=== PATIENT | male | born 1940 | race Caucasian/White ===

== ENCOUNTER 2018-11-12 14:21 | Inpatient (IN) | payer BC, OTHER ==
--- NOTE | 2018-11-12 16:06 | PDOC ---
Attending Attestation - HPI HPI: 11/12/18 16:46 The patient is a 78 year old male, with a significant PMH of hodgkin's lymphoma (2014 completed treatment), afib (on warfarin), hypothyroidism, hypotension, RA , who presents to the emergency department with worsening chronic knee pain for 1 month. The patient states he has not been able to ambulate for 1 week secondary to the knee pain and weakness. The patient also has an additional complaint of constipation. The patient denies chest pain, shortness of breath, headache and dizziness. Denies fever, chills, nausea, vomit, and diarrhea. Denies dysuria, frequency, urgency and hematuria. Allergies: NKA Documentation prepared by Frederick Castro, acting as director medical science for Kiara Haines DO. - Physicial Exam PE: 11/12/18 16:36 GENERAL: (+) Malodorous. Awake and alert, in no acute distress HEAD: No signs of trauma EYES: PERRLA, EOMI, sclera anicteric, conjunctiva clear ENT: Auricles normal inspection, hearing grossly normal, nares patent, oropharynx clear without exudates. Moist mucosa NECK: Normal ROM, supple, no lymphadenopathy, JVD, or masses LUNGS: Breath sounds equal, clear to auscultation bilaterally. No wheezes, and no crackles HEART: Regular rate and rhythm, normal S1 and S2, no murmurs, rubs or gallops ABDOMEN: (+) Obese. Soft, nontender, normoactive bowel sounds. No guarding, no rebound. No masses EXTREMITIES: (+) Limited range of motion in the hips and knees bilaterally secondary to pain and weakness. (+) Stiffness in the lower extremities. Sensation intact. Pedal pulses intact. Better passive range of motion than active. Upper extremities have full ROM. No clubbing or cyanosis. No cords, erythema, or tenderness NEUROLOGICAL: Cranial nerves II through XII grossly intact. Normal speech. SKIN: Warm, Dry, normal turgor, no rashes or lesions noted. <Frederick Castro - Last Filed: 11/12/18 16:48> - Resident Resident Name: Price Patricia - ED Attending Attestation I have performed the following: I have examined & evaluated the patient, The case was reviewed & discussed with the resident, I agree w/resident's findings & plan, Exceptions are as noted - Medical Decision Making 11/12/18 16:06 I, Dr. Kiara Haines, DO, attest that this document has been prepared under my direction and personally reviewed by me in its entirety. I further attest, that it accurately reflects all work, treatment, procedures and medical decision -making performed by me. 11/12/18 16:31 a/p: 78yo male with chronic knee pain and arthritis with worsening pain x 1 month -has not seen his docs x over three months, has not had his INR checked in over 3 months -has not been able to ambulte x >1 week, has been bed bound -has been constipated -normal po intake, denies dysuria, but states urine is concentrated -pt has limited ROM of LE with both active and passive, denies trauma, but generally weak to LE -will send labs, uric acid, knee swelling, no warmth, pain with active ROM -weak from pelvis to LE -sensation intact -all treatment has been at [facility] -will obtain xrays, ekg -ua -ck -will monitor and reassess 11/12/18 17:53 uric acid elevated no hx of kidney disease bird on labs will give prednisone for knee pain- suspect poss gouty arthritis -will need admission for BIRD pt seen by manager case who will assist with placement 11/12/18 18:56 resident discussed the case with demond who accepts pt to service <Kiara Haines - Last Filed: 11/12/18 18:57> Heart Score/ECG Review - ECG Intrepretation Comment:: 11/12/18 17:24 sinus at 78, nl axis, nl interval, no acute st/t wave findings <Kiara Haines - Last Filed: 11/12/18 18:57>
--- NOTE | 2018-11-12 16:07 | PDOC ---
History of Present Illness - General Chief Complaint: Pain Stated Complaint: LEG PAIN Time Seen by Provider: 11/12/18 15:26 History Source: Patient, Family Exam Limitations: No Limitations - History of Present Illness Initial Comments: 11/12/18 17:02 Pt. is a 78 y.o. M w/ PMHx. including but not exclusive to Hodgkins Lymphoma ( 2013- completed 2 session of chemotherapy), A.Fib (on warfarin), hypothyroidism and rheumatoid arthritis presents with b/l knee swelling for the past month. Pt. states that over the last week he has been having worsening knee swelling such that he cannot even get out of bed. The previous week he had been able to be transferred to the chair from the bed. Pt. normally is able to ambulate with a walker and/or cane. Pt. states that over the last 3 months he has had 4 arthritic flare ups that last 7-10 days in duration and treated by Ice, elevation and rest ONLY. Pt. states that he has associated generalized weakness , swelling and bilateral leg pain. Of note Pt. is constipated and state that he has not had a BM in over a week, though he usually goes every day. Pt. also states that his urine has been very dark/borderline reddish at home. We will order CBC, CMP, Mag, TSH, Uric Acid, PT/INR, CXR, B/l Knee XR, UA, CK, IV Tylenol. Timing/Duration: getting worse Severity: moderate Modifying Factors: worse with: cold therapy, immobilization, rest Associated Symptoms: reports: weakness. denies: chest pain, cough, fever/chills Aspirin Received prior to arrival: Yes: no aspirin today Past History - Travel Traveled outside of the country in the last 30 days: No Close contact w/someone who was outside of country & ill: No - Past Medical History Allergies/Adverse Reactions: Allergies Allergy/AdvReac Type Severity Reaction Status Date / Time No Known Allergies Allergy Verified 11/12/18 14:35 Cancer: Yes (HODGKINS LYMPHOMIA) Cardiac Disorders: Yes (AFIB) COPD: No Thyroid Disease: Yes (Hypothyroidism ) Other medical history: UMBILICAL & ABD HERNIA ARTHRITIS - Surgical History Orthopedic Surgery: Yes (Right knee tendon repair ) - Suicide/Smoking/Psychosocial Hx Smoking History: Former smoker Have you smoked in the past 12 months: No Information on smoking cessation initiated: No Hx Alcohol Use: No Drug/Substance Use Hx: No Review of Systems - Review of Systems Able to Perform ROS?: Yes Is the patient limited Czech proficient: No Constitutional: Yes: Weakness, Weight Stable. No: Chills, Fever, Unintentional Wgt. Loss, Unexplained wgt Loss HEENTM: No: Eye Pain, Recent change in vision, Difficulty Swallowing Respiratory: No: Cough, Shortness of Breath, Wheezing Cardiac (ROS): Yes: Edema. No: Chest Pain, Irregular Heart Rate, Lightheadedness, Palpitations, Chest Tightness ABD/GI: Yes: Constipated. No: Diarrhea, Difficulty Swallowing, Nausea, Vomiting : Yes: Testicular Swelling, Other (dark colored urine). No: Burning, Dysuria , Discharge, Frequency, Flank Pain Musculoskeletal: Yes: Joint Pain, Joint Swelling, Muscle Weakness, Joint Stiffness. No: Muscle Pain, Neck Pain Integumentary: Yes: Erythema Neurological: Yes: Weakness, Unsteady Gait. No: Numbness, Paresthesia Endocrine: No: Unexplained Weight Gain, Unexplained Weight Loss *Physical Exam - Vital Signs Last Vital Signs Temp Pulse Resp BP Pulse Ox 97.1 F L 74 18 114/79 95 11/12/18 14:35 11/12/18 14:35 11/12/18 14:35 11/12/18 14:35 11/12/18 14:35 - Physical Exam General Appearance: Yes: Nourished, Appropriately Dressed, Mild Distress, Obese HEENT: positive: Normal ENT Inspection, Normal Voice, Symmetrical. negative: Pharynx Normal (Dry MM) Neck: positive: Trachea midline, Supple. negative: Tender Respiratory/Chest: positive: Decreased Breath Sounds (bibiasilar ), Crackles ( bibasilar ). negative: Respiratory Distress, Accessory Muscle Use, Wheezing Cardiovascular: positive: Regular Rhythm, Regular Rate, S1, S2, Edema. negative : JVD, Murmur Vascular Pulses: Dorsalis-Pedis (R): 2+, Doralis-Pedis (L): 2+ Gastrointestinal/Abdominal: positive: Normal Bowel Sounds, Soft, Protuberent, Hernia. negative: Guarding, Rebound, Tenderness Male Genitalia: positive: inguinal hernia, hernia. negative: normal genitalia ( scrotal swelling), epididymus tender Rectal Exam: positive: deferred Musculoskeletal: positive: Decreased Range of Motion (decreased b/l R>L in knees , elbow and hip with associated joint stiffness). negative: CVA Tenderness Extremity: positive: Pedal Edema, Swelling. negative: Normal Range of Motion Integumentary: positive: Dry, Warm, Erythema (over knees bilaterally) Neurologic: positive: Fully Oriented, Normal Mood/Affect, Normal Response, Respond to painful stimul Moderate Sedation - Procedure Monitoring Vital Signs: Procedure Monitoring Vital Signs Temperature 97.1 F L 11/12/18 14:35 Pulse Rate 74 11/12/18 14:35 Respiratory Rate 18 11/12/18 14:35 Blood Pressure 114/79 11/12/18 14:35 O2 Sat by Pulse Oximetry (%) 95 11/12/18 14:35 ED Treatment Course - LABORATORY CBC & Chemistry Diagram: 11/12/18 16:57 11/12/18 16:57 *DC/Admit/Observation/Transfer Diagnosis at time of Disposition: BIRD (acute kidney injury), Inability to ambulate due to knee, Arthritis - Discharge Dispostion Decision to Admit order: Yes - Referrals Referrals: Alexi Quijano [Primary Care Provider] - - Patient Instructions - Post Discharge Activity
[2018-11-12] MEDS ORDERED: ACETAMINOPHEN 1000 MG/100 ML VIAL (NON FORMULARY) IVPB ONE (16:21)
[2018-11-12] MEDS ORDERED: SODIUM CHLORIDE 0.9% 1000 ML INFUS.BAG IV ONE (16:30)
[2018-11-12] MEDS ORDERED: ACETAMINOPHEN INJECTION 100 ML IVPB ONE (16:46)
[2018-11-12 17:04] LABS: HEMATOCRIT 37.1 % (35.4-49); LYMPH % 15.8 % (8-40); MCH 32.2 pg (25.7-33.7); MONO % 8.6 % (3.8-10.2); NEUT % 69.6 % (42.8-82.8); PLATELET COUNT 565 K/MM3 (134-434); RBC 4.03 M/mm3 (4.00-5.60); RDW 14.3 % (11.9-15.9); WHITE BLOOD COUNT 9.4 K/mm3 (4.0-10.0)
[2018-11-12 17:23] LABS: INR 2.71 (0.83-1.09); PROTHROMBIN TIME (PATIENT) 32.3 SEC (9.7-13.0)
[2018-11-12 17:42] LABS: ALBUMIN 2.6 g/dl (3.4-5.0); ALK PHOS 117 U/L (45-117); ANION GAP 9 MMOL/L (8-16); BILIRUBIN,TOTAL 0.5 mg/dL (0.2-1); BLOOD UREA NITROGEN 53 mg/dL (7-18); CALCIUM 8.2 mg/dL (8.5-10.1); CHLORIDE 100 mmol/L (98-107); CO2 28 mmol/L (21-32); CREATININE 2.4 mg/dL (0.55-1.3); GLUCOSE,RANDOM 97 mg/dL (74-106); MAGNESIUM 2.5 mg/dL (1.8-2.4); POTASSIUM 3.9 mmol/L (3.5-5.1); SGOT/AST 33 U/L (15-37); SGPT/ALT 41 U/L (13-61); SODIUM 137 mmol/L (136-145); URIC ACID 11.2 mg/dL (2.6-7.2)
[2018-11-12] MEDS ORDERED: predniSONE 20 MG TABLET (UD) PO ONE (18:56)
--- NOTE | 2018-11-12 20:27 | HP ---
CHIEF COMPLAINT: Decreased Ambulation PCP: Dr. Brayden Torres HCP: Son Tasneem [phone] HISTORY OF PRESENT ILLNESS: 78 y/o M with PMHx of Hodgkins lymphoma, Atrial fibrillation (on Warfarin), Rheumatoid Arthritis presents with difficulty ambulating for the past month. Patients son and HCP Tasneem was present at bedside and provided part of the history. Patient has had b/l Knee swelling for the past 3 months accompanied by 4 episodes of stiffness that have lasted 7-10 days. Patient has called his PCP who advised RICE therapy which has helped. However, for the past one month, this is no longer providing relief. Patient has had worsening swelling of his b/ l Knee joints and decreased range of montion of his b/l LE. Previously the patient has been able to ambulate with cane/walker however now he is having trouble getting off of his bed and supporting himself. Additionally he is experiencing 9/10, sharp pain in his R Knee that travels to his R heel. Tylenol has helped in the past but is no longer providing relief. Patient endorses a hx of Dizzy spells and constipation. Denies any recent trauma, falls or rash to the area. Of note, Patient has had 2 sessions of hemodialysis while he was undergoing chemotherapy 4 years ago. Per ED Physician, patient has a reducible Umbilical and R Inguinal hernia. Denies any accompanying fevers, chills, chest pain, SOB, Nausea, vomiting, diarrhea, dysuria, hematuria, decreased PO Intake. ER course was notable for: (1) Prednisone, Ofirmev, 1/2L NS Recent Travel: Denies PAST MEDICAL HISTORY: Hodgkins lymphoma s/p 2 sessions of chemo (2013) Atrial fibrillation (on Warfarin) Umbilical and Inguinal hernia Rheumatoid Arthritis Hypothyroidism BPH PAST SURGICAL HISTORY: Tonsillectomy Right Patellar tendon repair Social History: Smoking: Quit in 1963; Few cigarettes daily x 10 years prior Alcohol: Denies Drugs: Denies Ambulation: Cane and walker for past 3 months Residence: At home with and Son Tasneem Family History: Cardiac disease Allergies No Known Allergies Allergy (Verified 11/12/18 14:35) HOME MEDICATIONS: REVIEW OF SYSTEMS As per HPI PHYSICAL EXAMINATION Vital Signs - 24 hr 11/12/18 11/12/18 14:35 19:31 Temperature 97.1 F L Pulse Rate 74 Pulse Rate [ 78 Radial] Respiratory 18 18 Rate Blood Pressure 114/79 Blood Pressure 101/64 [Right Arm] O2 Sat by Pulse 95 96 Oximetry (%) GENERAL: A&Ox3, NAD, lying with head of bed elevated HEAD: NCAT EYES: PERRL, EOMI EARS, NOSE, THROAT: Oropharynx clear without exudates. Moist mucous membranes. NECK: Supple without lymphadenopathy or JVD LUNGS: CTA b/l, No wheezes, no crackles HEART: Regular rate and rhythm, normal S1 and S2 without murmur ABDOMEN: Soft, nontender, distended, + bowel sounds, no guarding MUSCULOSKELETAL: Decreased b/l Hip ROM, Decreased b/l Knee flexion. B/L Knee swelling. No CVA tenderness. EXTREMITIES: 2+ pulses, No calf tenderness. 1+ Pedal edema. NEUROLOGICAL: Cranial nerves II-XII intact. Normal speech. Gross sensation intact throughout. 5/5 muscle strength to handgrip, elbow flexion and extension. 0/5 muscle strength to Hip Flexion. 4/5 muscle strength to Plantarflexion and dorsiflexion. SKIN: Warm, dry Laboratory Results - last 24 hr 11/12/18 11/12/18 11/12/18 16:57 16:57 16:57 WBC 9.4 RBC 4.03 Hgb 13.0 Hct 37.1 MCV 92.0 MCH 32.2 MCHC 35.0 RDW 14.3 Plt Count 565 H MPV 7.0 L Absolute Neuts (auto) 6.6 Neutrophils % 69.6 Lymphocytes % 15.8 Monocytes % 8.6 Eosinophils % 5.0 H Basophils % 1.0 Nucleated RBC % 0 PT with INR 32.30 H INR 2.71 H Sodium 137 Potassium 3.9 Chloride 100 Carbon Dioxide 28 Anion Gap 9 BUN 53 H Creatinine 2.4 H Creat Clearance w eGFR 26.25 Random Glucose 97 Uric Acid 11.2 H Calcium 8.2 L Magnesium 2.5 H Total Bilirubin 0.5 AST 33 ALT 41 Alkaline Phosphatase 117 Creatine Kinase 89 Total Protein 7.0 Albumin 2.6 L TSH 2.99 ASSESSMENT/PLAN: 78 y/o M with PMHx of Hodgkins lymphoma, Atrial fibrillation (on Warfarin), Rheumatoid Arthritis presents with difficulty ambulating for the past month and found to have BIRD on admission. #B/L Knee pain causing inability to ambulate -Hx of RA -ESR, CRP, SENAIT, RF pending -Physical therapy evaluation -Tylenol for pain control -Orthopedic (Dr. Rojas) Consulted #?BIRD -Unknown baseline Cr, HD during chemotherapy 4 years ago -Received 1/2L NS in ED -Continue NS @ 100 mls/hr -UA, Urine lytes, Urine Sodium, Urine Cr, Renal/Kidney US pending -I&Os -Nephrology consult if BIRD doesnt improve -Avoid NSAIDs; Home dose lasix held #Hx of Atrial fibrillation -Controlled -Continue home dose Warfarin, Carvedilol #Constipation -Senna, Colace #FEN -NS @ 100 mls/hr -Lytes WNL -Sodium controlled diet #PPx -DVT: Heparin Dispo: Admit to med-surg, 3 midnights required for SNF placement for insurance reasons, Home meds restarted except Lasix Visit type - Emergency Visit Emergency Visit: Yes ED Registration Date: 11/12/18 Care time: The patient presented to the Emergency Department on the above date and was hospitalized for further evaluation of their emergent condition. - New Patient This patient is new to me today: Yes Date on this admission: 11/15/18 - Critical Care Critical Care patient: No
[2018-11-12 20:42] LABS: URINE APPEARANCE CLEAR; URINE BILIRUBIN NEGATIVE (<2.0 mg/dL); URINE COLOR LTYELLOW; URINE GLUCOSE (UA) NEGATIVE (NEGATIVE); URINE KETONE NEGATIVE (NEGATIVE); URINE LEUK ESTERASE NEGATIVE (NEGATIVE); URINE NITRITE NEGATIVE (NEGATIVE); URINE PROTEIN NEGATIVE (NEGATIVE); URINE UROBILINOGEN NEGATIVE mg/dL (0.2-1.0)
[2018-11-12] MEDS ORDERED: SODIUM CHLORIDE 1,000 ML IV SCH ×2 (20:45→21:26)
--- NOTE | 2018-11-12 21:02 | PN ---
Teaching Attending Note Name of Resident: Edd Malave ATTENDING PHYSICIAN STATEMENT I saw and evaluated the patient. I reviewed the resident's note and discussed the case with the resident. I agree with the resident's findings and plan as documented. CC: B/L knee swelling, trouble walking SUBJECTIVE: Patient is a 78 y/o male with a PMH of NHL (2013 tx), COPD (no home O2, no PFTs , former smoker), HTN, Afib on warfarin, ?RA (unsure if ever had serum studies, etc.), potential other conditrions (no prior records here, he is a poor historian, and his son doesn't have his complete health information memorized). He aparently was on HD during his treatment for NHL and had some resulting renal issues but does not currently follow with nephrology; family forgets who [facility]. Currently, he is hemodynamically stable and afebrile. He has no complaints to offer today aside from indicating his knees are uncomfortable. He can move his knees and his hips , it is just painful for him to do so. They have been swollen for the past month (knees b/l) and it has been progressively uncomfortable for the patient due to this. No recent trauma to knees; has had knee replacement. Unsure of his baseline creatine but it is elevated to the mid 2-range today. He will be admitted to the medicine service for further workup and monitoring. Urine has been slightly dark per his son. 10 sys ROS done and negative aside from HPI PMH and PSH reviewed FH asked and noncontributory Socially he is a poor historian, former smoker, lives at home with family, no EtOH abuse Medication list reviewed with resident; need to confirm with pharmacy OBJECTIVE: VS, labs, imaging reviewed NAD, AAO, resting comfortably in bed RRR s1/2 no mgr Lungs CTAB w/ sym exp NT ND +BS B/L swollen knees with post op changes, negative lachmans, some pain to deep palpation in nonspecific distribution Labs show thrombocytosis to 560s, therapeutic INR to 2.7, no WBC count, Cr 2.4 with BUN in 50 range. Knee XRays reviewed; show L knee with joint effusion and no signs of fracture or subluxation. R knee with small joint effusion and anterior soft tissue calcifications and possible old osteophyte fracture of the superior aspect of the patella. Acute process not seen EKG reviewed ASSESSMENT AND PLAN: Mr. Brown is a 78 y/o male presenting to the ER with a CC of b/l knee pain and swelling worsening for a month found to have elevated Cr. 1) BIRD vs. BIRD on CKD vs. CKD -Unknown baseline creatinine; was on HD ~4 years ago with his cancer tx but has not had consistent followup with nephrology since. -Obtain FeNa, renal US; obtain old records from [facility]. -Empirically hydrate (no acute change in PO intake per the son but chronically is poor, I am told) with NS@100 overnight; trend BMP and followup UOP. -If worsens consider nephrology consult -Given joint issues investigate any AI cause; discussed below -Reconcile medications; hold any nephrotoxic agents. 2) Bilateral knee pain, swelling, weakness -?History of RA? Will check ESR, CRP, SENAIT, RF -PT consult -Orthopedic consultation in AM 3) History of Afib, on warfarin -Continue warfarin at home dose; trend INR when inpatient -Continue home rate control; call his pharmacy to reconcile meds 4) History of NHL -Followup OP 5) Hypoalbuminemia -Check prealbumin -Given history of poor PO intake at home have nutrition see him. 6) COPD hx -No exacerbations; reconcile meds and continue home inhalers 7) HTN -Reconcile meds; continue appropriate agents holding any nephrotoxic medications. FENA -NS@100 -PRN replete -Regular diet -PT consult Full Code Consults: Orthopedics, PT
[2018-11-12] MEDS ORDERED: ACETAMINOPHEN 325 MG TABLET (FP) PO PRN (21:27)
[2018-11-12] MEDS ORDERED: DOCUSATE SODIUM 100 MG CAPSULE (FP) PO ONE (22:01)
[2018-11-12] MEDS ORDERED: predniSONE 20 MG TABLET (UD) ONE (22:01)
[2018-11-12] MEDS: SENNOSIDES 8.6MG TABLET (FP) PO SCH (22:04)
[2018-11-12] MEDS: DOCUSATE SODIUM 100 MG CAPSULE (FP) PO SCH (22:04)
[2018-11-13] MEDS ORDERED: HEPARIN NA (PORCINE) 5,000 UNITS/ML 1ML VIAL SQ SCH (06:00)
[2018-11-13] MEDS: LEVOTHYROXINE NA 100 MCG TABLET (FP) PO SCH (06:02)
[2018-11-13] MEDS: DOCUSATE SODIUM 100 MG CAPSULE (FP) PO SCH ×3 (06:02→21:52)
[2018-11-13] MEDS: hydrALAZINE HCL 10 MG TABLET PO SCH ×3 (06:02→21:51)
[2018-11-13 07:22] LABS: BASO % 0.4 % (0-2.0); EOS % 0.1 % (0-4.5); HEMATOCRIT 35.7 % (35.4-49); HEMOGLOBIN 11.7 GM/dL (11.7-16.9); LYMPH % 10.5 % (8-40); MCH 30.9 pg (25.7-33.7); MCHC 32.7 g/dl (32.0-35.9); MEAN CELL VOLUME 94.5 fl (80-96); MEAN PLT VOLUME 7.1 fl (7.5-11.1); MONO % 0.8 % (3.8-10.2); NEUT % 88.2 % (42.8-82.8); PLATELET COUNT 484 K/MM3 (134-434); RBC 3.77 M/mm3 (4.00-5.60); RDW 14.4 % (11.9-15.9); WHITE BLOOD COUNT 5.2 K/mm3 (4.0-10.0)
[2018-11-13 07:46] LABS: INR 2.73 (0.83-1.09); PROTHROMBIN TIME (PATIENT) 32.5 SEC (9.7-13.0)
[2018-11-13 07:53] VITALS: BMI 33.2
[2018-11-13 07:55] LABS: ALBUMIN 2.5 g/dl (3.4-5.0); ALK PHOS 107 U/L (45-117); ANION GAP 11 MMOL/L (8-16); BILIRUBIN,TOTAL 0.6 mg/dL (0.2-1); BLOOD UREA NITROGEN 52 mg/dL (7-18); CALCIUM 7.8 mg/dL (8.5-10.1); CHLORIDE 104 mmol/L (98-107); CO2 23 mmol/L (21-32); CREATININE 2.4 mg/dL (0.55-1.3); GLUCOSE,RANDOM 192 mg/dL (74-106); MAGNESIUM 2.7 mg/dL (1.8-2.4); PHOSPHOROUS 3.5 mg/dL (2.5-4.9); POTASSIUM 3.9 mmol/L (3.5-5.1); SGOT/AST 27 U/L (15-37); SGPT/ALT 33 U/L (13-61); SODIUM 138 mmol/L (136-145); TOT PROT 6.6 g/dl (6.4-8.2)
[2018-11-13] MEDS ORDERED: PT OWN MED DRAWER 7, Y5N ONE ×2 (09:16→15:11)
[2018-11-13] MEDS: TAMSULOSIN HCL 0.4 MG CAP PO SCH (09:29)
[2018-11-13] MEDS: CARVEDILOL 3.125 MG TABLET (FP) PO SCH ×2 (09:29→21:51)
[2018-11-13] MEDS: SENNOSIDES 8.6MG TABLET (FP) PO SCH ×2 (09:29→21:51)
[2018-11-13] MEDS: LORATADINE 10 MG TABLET PO SCH (09:30)
[2018-11-13] MEDS: RANITIDINE HCL 150 MG TABLET (FP) PO SCH ×2 (09:30→21:51)
--- NOTE | 2018-11-13 09:39 | EKG ---
Test Reason : Blood Pressure : / mmHG Vent. Rate : 077 BPM Atrial Rate : 077 BPM P-R Int : 142 ms QRS Dur : 090 ms QT Int : 388 ms P-R-T Axes : 017 -12 035 degrees QTc Int : 439 ms NORMAL SINUS RHYTHM NORMAL ECG NO PREVIOUS ECGS AVAILABLE Confirmed by ABBY FERRARA, JOSE ([id number]) on 11/13/2018 9:39:35 AM Referred By: Confirmed By:JOSE MORA MD
[2018-11-13] MEDS: BUDESONIDE/FORMETEROL FUMARATE 160/4.5 mcg INHALER IH SCH ×2 (10:23→21:53)
--- NOTE | 2018-11-13 13:23 | PN ---
Teaching Attending Note Name of Resident: Faye Dunlap ATTENDING PHYSICIAN STATEMENT I saw and evaluated the patient. I reviewed the resident's note and discussed the case with the resident. I agree with the resident's findings and plan as documented. SUBJECTIVE: has pain in both knees x 2 weeks . denies any swelling or pain in other joints. has no fever or chills . denies having gout in past. denies following with rheum for his RA . denies CP, SOB , or palpitations. constipation , no BM x 1 week OBJECTIVE: NAD CV: RRR, no MRG lungs: bibasilar fine crackles Abd: distended , tympanic , hyperactive BS. NT Ext: 2+ edema on feet. no erythema or increased warmth on knees. effusion is fel in R knee. R knee anterior surgical scar deformities in hand joints ASSESSMENT AND PLAN: 78 y/o man with h/o RA , A fib on AC, COPD, HTN, Hodgkin's lymphoma, and other medical problems who presented with b/l kne pain and inability to ambulate . 1- B/l Knee pain and effusion. could be due to OA exacerbation vs Crystal induced arthritis ( gout or pseudogout). UA noted. - ortho for arhtrocentesis - tylenol for pain - PT . - I do not suspect septic arthritis - ESR and CRP elevated butnon specific. - rheum follow up as out pt 2- Constipation : with abd distention . - check KUB - then start bowel regimen - will perform rectal for possible dis-impaction 3- CKD: records indicate Cr at base line. will indicate more records form PCP and Santos - dc IVF - resume his lasix - f/u with renal as out pt 4- HTN: cont hydralazin and corg 5- DVT PX : on coumadin
--- NOTE | 2018-11-13 15:00 | PN ---
Physical Exam: SUBJECTIVE: Patient seen and examined at bedside this morning. Patient was eating, reported no complaints. During rounds, patient reported he has had a bowel movement for 1 week. He has been in Colace and Senna which did not relieve constipation. Fecal impaction done in the afternoon, patient was noted to have some blood-tinged stool, sample sent for FOBT. OBJECTIVE: Vital Signs Period Temp Pulse Resp BP Sys/Gomez Pulse Ox Last 24 Hr 97.7 F-98.0 F 78-89 18-18 100-116/61-78 96-98 GENERAL: The patient is awake, alert, and fully oriented, in no acute distress. HEAD: Normal with no signs of trauma. EYES: PERRLA, extraocular movements intact, sclera anicteric, conjunctiva clear. ENT: Ears normal, nares patent, oropharynx clear without exudates, moist mucous membranes. NECK: Trachea midline, full range of motion, supple. LUNGS: +crackles bilateral bases, good air entry. HEART: Regular rate and rhythm, S1, S2 without murmur, rub or gallop. ABDOMEN: Soft, nontender, nondistended, normoactive bowel sounds, no guarding, no rebound, no hepatosplenomegaly, no masses. EXTREMITIES: 2+ pulses, warm, well-perfused, no edema. +2 peripheral edema on both feet. MSK: b/l UE: motor strength 5/5, sensation intact, ROM intact, +swan neck deformity on 3rd and 4th digits of left hand. +ulnar deformity b/l hands. LLE: 3 /5 hip flexion, 4/5 knee flexion, extension limited by pain, sensation intact. RLE: 3/5 hip flexion, 4/5 knee flexion, extension, plantar flexion, dorsiflexion limited by pain. NEUROLOGICAL: Cranial nerves II through XII grossly intact. Normal speech, gait not observed. PSYCH: Normal mood, normal affect. SKIN: Warm, dry, normal turgor, no rashes or lesions noted Laboratory Results - last 24 hr 11/12/18 11/12/18 11/12/18 16:57 16:57 16:57 WBC 9.4 RBC 4.03 Hgb 13.0 Hct 37.1 MCV 92.0 MCH 32.2 MCHC 35.0 RDW 14.3 Plt Count 565 H MPV 7.0 L Absolute Neuts (auto) 6.6 Neutrophils % 69.6 Lymphocytes % 15.8 Monocytes % 8.6 Eosinophils % 5.0 H Basophils % 1.0 Nucleated RBC % 0 ESR PT with INR 32.30 H INR 2.71 H Sodium 137 Potassium 3.9 Chloride 100 Carbon Dioxide 28 Anion Gap 9 BUN 53 H Creatinine 2.4 H Creat Clearance w eGFR 26.25 Random Glucose 97 Uric Acid 11.2 H Calcium 8.2 L Phosphorus Magnesium 2.5 H Total Bilirubin 0.5 AST 33 ALT 41 Alkaline Phosphatase 117 Creatine Kinase 89 C-Reactive Protein Total Protein 7.0 Albumin 2.6 L Prealbumin TSH 2.99 Urine Color Urine Appearance Urine pH Ur Specific [place] Urine Protein Urine Glucose (UA) Urine Ketones Urine Blood Urine Nitrite Urine Bilirubin Urine Urobilinogen Ur Leukocyte Esterase 11/12/18 11/12/18 11/12/18 20:24 21:50 21:50 WBC RBC Hgb Hct MCV MCH MCHC RDW Plt Count MPV Absolute Neuts (auto) Neutrophils % Lymphocytes % Monocytes % Eosinophils % Basophils % Nucleated RBC % ESR 89 H PT with INR INR Sodium Potassium Chloride Carbon Dioxide Anion Gap BUN Creatinine Creat Clearance w eGFR Random Glucose Uric Acid Calcium Phosphorus Magnesium Total Bilirubin AST ALT Alkaline Phosphatase Creatine Kinase C-Reactive Protein 11.2 H Total Protein Albumin Prealbumin TSH Urine Color Ltyellow Urine Appearance Clear Urine pH 5.0 Ur Specific [place] 1.013 Urine Protein Negative Urine Glucose (UA) Negative Urine Ketones Negative Urine Blood Negative Urine Nitrite Negative Urine Bilirubin Negative Urine Urobilinogen Negative Ur Leukocyte Esterase Negative 11/13/18 11/13/18 11/13/18 06:15 06:15 06:15 WBC 5.2 RBC 3.77 L Hgb 11.7 Hct 35.7 MCV 94.5 MCH 30.9 MCHC 32.7 RDW 14.4 Plt Count 484 H MPV 7.1 L Absolute Neuts (auto) 4.6 Neutrophils % 88.2 H D Lymphocytes % 10.5 D Monocytes % 0.8 L D Eosinophils % 0.1 D Basophils % 0.4 Nucleated RBC % 0 ESR PT with INR 32.50 H INR 2.73 H Sodium 138 Potassium 3.9 Chloride 104 Carbon Dioxide 23 Anion Gap 11 BUN 52 H Creatinine 2.4 H Creat Clearance w eGFR 26.25 Random Glucose 192 H Uric Acid Calcium 7.8 L Phosphorus 3.5 Magnesium 2.7 H Total Bilirubin 0.6 AST 27 ALT 33 Alkaline Phosphatase 107 Creatine Kinase C-Reactive Protein Total Protein 6.6 Albumin 2.5 L Prealbumin TSH Urine Color Urine Appearance Urine pH Ur Specific [place] Urine Protein Urine Glucose (UA) Urine Ketones Urine Blood Urine Nitrite Urine Bilirubin Urine Urobilinogen Ur Leukocyte Esterase 11/13/18 06:15 WBC RBC Hgb Hct MCV MCH MCHC RDW Plt Count MPV Absolute Neuts (auto) Neutrophils % Lymphocytes % Monocytes % Eosinophils % Basophils % Nucleated RBC % ESR PT with INR INR Sodium Potassium Chloride Carbon Dioxide Anion Gap BUN Creatinine Creat Clearance w eGFR Random Glucose Uric Acid Calcium Phosphorus Magnesium Total Bilirubin AST ALT Alkaline Phosphatase Creatine Kinase C-Reactive Protein Total Protein Albumin Prealbumin 11.9 L TSH Urine Color Urine Appearance Urine pH Ur Specific [place] Urine Protein Urine Glucose (UA) Urine Ketones Urine Blood Urine Nitrite Urine Bilirubin Urine Urobilinogen Ur Leukocyte Esterase Active Medications Generic Name Dose Route Start Last Admin Trade Name Freq PRN Reason Stop Dose Admin Acetaminophen 650 mg 11/12/18 21:27 Tylenol - PO Q4H PRN FEVER Budesonide/Formoterol Fumarate 2 puff 11/13/18 10:00 Symbicort 160/4.5mcg - IH BID [facility] Carvedilol 3.125 mg 11/13/18 10:00 11/13/18 09:29 Coreg - PO 3.125 mg BID [facility] Administration Docusate Sodium 100 mg 11/12/18 22:00 11/13/18 14:53 Colace - PO 100 mg TID [facility] Administration Furosemide 40 mg 11/14/18 10:00 Lasix - PO DAILY [facility] Hydralazine HCl 10 mg 11/13/18 06:00 11/13/18 14:43 Apresoline - PO Not Given TID [facility] Levothyroxine Sodium 100 mcg 11/13/18 07:00 11/13/18 06:02 Synthroid - PO 100 mcg DAILY@0700 [facility] Administration Loratadine 10 mg 11/13/18 10:00 11/13/18 09:30 Claritin - PO 10 mg DAILY [facility] Administration Montelukast Sodium 10 mg 11/13/18 22:00 Singulair - PO HS [facility] Non-Formulary Medication 137 mcg 11/13/18 10:00 Azelastine Hcl [Azelastine Hcl] PO DAILY [facility] Ranitidine HCl 150 mg 11/13/18 10:00 11/13/18 09:30 Zantac - PO 150 mg BID [facility] Administration Senna 1 tab 11/12/18 22:00 11/13/18 09:29 Senna - PO 1 tab BID [facility] Administration Tamsulosin HCl 0.4 mg 11/13/18 08:30 11/13/18 09:29 Flomax - PO 0.4 mg DAILY@0830 [facility] Administration Warfarin Sodium 2.5 mg 11/13/18 18:00 Coumadin - PO Q2D@1800 [facility] Warfarin Sodium 5 mg 11/14/18 18:00 Coumadin - PO Q2D@1800 [facility] ASSESSMENT/PLAN: Patient is a 78 year old male with past medical history of ILD, CKD stage 4, Large cell lymphoma, systolic CHF (NYHA class 2), paroxysmal atrial fibrillation (on coumadin), BPH and HTN, presented with bilateral knee pain for about 3 months, associated with difficulty ambulating since 1 week. #Bilateral knee pain: possible osteoarthritis vs rheumatoid arthritis vs gout ( Uric acid 09/18) -Left knee xray (05/2017):Medial compartment and patellofemoral joint space narrowing with small periarticular osteophytes. Small suprapaterllar effusion. Vascular calcifications. -Left knee xray: arthritic changes with joint effusion but no sign of fracture or subluxation -Right knee xray: small joint effusion, anterior soft tissue calcifications and possible old osteophyte fracture of the superior aspect of the patella. Arthritic changes are noted.An acute process is not seen. -ESR, CRP, SENAIT, RF pending -Physical therapy -Tylenol PRN for pain -Ortho (Dr. Rojas) consulted. #CKD -BUN/Cr 52/2.4(baseline 40/2.4) -IVF discontinued -UA, urine lytes, urine Cr done -Renal/kidney US done -Avoid nephrotoxic agents such as NSAIDs, aminoglycosides, contrast. #Paroxysmal atrial fibrillation -Continue Coreg 3.125mg daily. -Continue Coumadin as dosed by primary care doctor. Coumadin 5mg q2d (started today), 2.5mg q2d (starting tomorrow). #Constipation: likely 2/2 fecal impaction -Abdominal xray done: nonspecific, nonobstruction -[place]: +firm stool on anal vault, no masses, no hemorrhoids appreciated. +blood- tinged stool noted. -Stool occult blood test done. -Fecal disimpaction done. -Continue Senna and colace. Will add miralax. #systolic CHF: not in exacerbation -Continue Lasix 40mg daily. #HTN: controlled -Continue home Hydralazine 10mg TID -Coreg 3.125 mg BID -Will continue to monitor BP #FEN -Not on any standing fluids. -Electrolytes wnl, routine bmp monitoring -Sodium controlled diet. #Prophylaxis -On coumadin ASDIR #Disposition -full code -admit to med-surg Visit type - Emergency Visit Emergency Visit: Yes ED Registration Date: 11/12/18 Care time: The patient presented to the Emergency Department on the above date and was hospitalized for further evaluation of their emergent condition. - New Patient This patient is new to me today: Yes Date on this admission: 11/13/18 - Critical Care Critical Care patient: No
[2018-11-13] MEDS ORDERED: WARFARIN NA 2.5 MG TABLET (FP) PO SCH ×2 (18:00)
[2018-11-13] MEDS: WARFARIN NA 5 MG TABLET (UD) PO SCH (18:14)
--- NOTE | 2018-11-13 19:21 | CONSULT ---
Consult - text type - Consultation Consultation Note: ORTHOPEDIC SURGERY CONSULTATION NOTE Department of Orthopedic Surgery HISTORY OF PRESENT ILLNESS Mr. Brown is a 78 year old male who presents to [facility] with bilateral knee pain and inability to ambulate. The orthopedic service was consulted for bilateral knee pain. The patient denies any specific incident or trauma. He states that he was able to ambulate without much pain about 1 month ago. His knees started to hurt and stopped walking as much. When he tried to walk again he was not able to and was brought to the hospital. The patient notes mild pain in the lateral joint line of his right knee, and medial joint line of his left knee. He states he has mild back pain as well. Denies any other injuries. Denies numbness, tingling or other constitutional complaints. Denies tobacco use, drug use, alcohol abuse. The patient lives with family used no assistive devices at baseline 1 month ago. Patient states he has had constipation lately. FAMILY HISTORY na REVIEW OF SYMPTOMS A twelve-point review of systems was performed and was negative except as noted in HPI. PHYSICAL EXAM Constitutional: Alert and oriented to person, place, and time. Appears well- developed and well-nourished. No acute distress, appropriate mood and affect. Pulmonary: Breathing comfortably, normal air movement, no audible wheezing. Right Upper Extremity: Skin warm, dry, and intact; no lesions, rashes or ulcers noted. Muscle mass equal and symmetric to contralateral side. No atrophy noted. No masses or effusions noted. No tenderness to palpation all joints; nontender throughout rest of extremity. Full passive and active ROM, free from pain. Joints stable with no pathologic laxity. M/R/U/MSK/AX motor intact; SILT distally; 2+ radial pulses; Cap refill brisk. Tone and reflexes normal. Left Upper Extremity: Skin warm, dry, and intact; no lesions, rashes or ulcers noted. Muscle mass equal and symmetric to contralateral side. No atrophy noted. No masses or effusions noted. No tenderness to palpation all joints; nontender throughout rest of extremity. Full passive and active ROM, free from pain. Joints stable with no pathologic laxity. M/R/U/MSK/AX motor intact; SILT distally; 2+ radial pulses; Cap refill brisk. Tone and reflexes normal. Right Lower Extremity: Skin warm, dry, and intact; no lesions, rashes or ulcers noted. Muscle mass equal and symmetric to contralateral side. No atrophy noted. No masses or effusions noted. Tender to palpation at lateral joint line knee; nontender throughout rest of extremity. No cords or calf tenderness Mild calf/ankle edema. Limited passive ROM, mild pain at extremes of flexion/ extension secondary to arthritis. He can flex his knee, but not extend it on his own. Joints stable with no pathologic laxity. EHL/TA/GS motor intact; SILT distally; 2+ DP pulses; Cap refill brisk. Tone and reflexes normal distally. He has a significant quadriceps weakness 1/5, and 4+/5 hamstring strength. No signs of septic joint. Left Lower Extremity: Skin warm, dry, and intact; no lesions, rashes or ulcers noted. Muscle mass equal and symmetric to contralateral side. No atrophy noted. No masses or effusions noted. Tender to palpation at medial joint line knee; nontender throughout rest of extremity. No cords or calf tenderness Mild calf/ankle edema. Limited passive ROM, mild pain at extremes of flexion/ extension secondary to arthritis. ROM is from 15-90 without pain. Joints stable with no pathologic laxity. EHL/TA/GS motor intact; SILT distally; 2+ DP pulses; Cap refill brisk. Tone and reflexes normal distally. He has a significant quadriceps weakness 1/5, and 4+/5 hamstring strength. No signs of septic joint. No Saddle parasthesias. Active Problems Problem Status Category Onset BIRD (acute kidney injury) Acute Medical Arthritis Acute Medical Inability to ambulate due to knee Acute Medical Social History Smoking history Former smoker If you are a former smoker, pt states "years ago" when did you quit? Hx Alcohol Use No Allergies Allergy/AdvReac Type Severity Reaction Status Date / Time No Known Allergies Allergy Verified 11/12/18 14:35 Active Medications Generic Name Dose Route Start Last Admin Trade Name Freq PRN Reason Stop Dose Admin Acetaminophen 650 mg 11/12/18 21:27 Tylenol - PO Q4H PRN FEVER Budesonide/Formoterol Fumarate 2 puff 11/13/18 10:00 11/13/18 10:23 Symbicort 160/4.5mcg - IH Not Given BID [facility] Carvedilol 3.125 mg 11/13/18 10:00 11/13/18 09:29 Coreg - PO 3.125 mg BID [facility] Administration Docusate Sodium 100 mg 11/12/18 22:00 11/13/18 14:53 Colace - PO 100 mg TID [facility] Administration Furosemide 40 mg 11/14/18 10:00 Lasix - PO DAILY [facility] Hydralazine HCl 10 mg 11/13/18 06:00 11/13/18 14:43 Apresoline - PO Not Given TID [facility] Levothyroxine Sodium 100 mcg 11/13/18 07:00 11/13/18 06:02 Synthroid - PO 100 mcg DAILY@0700 [facility] Administration Loratadine 10 mg 11/13/18 10:00 11/13/18 09:30 Claritin - PO 10 mg DAILY [facility] Administration Montelukast Sodium 10 mg 11/13/18 22:00 Singulair - PO [facility] Non-Formulary Medication 137 mcg 11/13/18 10:00 Azelastine Hcl [Azelastine Hcl] PO DAILY [facility] Polyethylene Glycol 17 gm 11/13/18 22:00 Miralax (For Daily Use) - PO TID [facility] Ranitidine HCl 150 mg 11/13/18 10:00 11/13/18 09:30 Zantac - PO 150 mg BID [facility] Administration Senna 1 tab 11/12/18 22:00 11/13/18 09:29 Senna - PO 1 tab BID [facility] Administration Tamsulosin HCl 0.4 mg 11/13/18 08:30 11/13/18 09:29 Flomax - PO 0.4 mg DAILY@0830 [facility] Administration Warfarin Sodium 5 mg 11/13/18 18:00 11/13/18 18:14 Coumadin - PO 5 mg Q2D@1800 [facility] Administration Warfarin Sodium 2.5 mg 11/14/18 18:00 Coumadin - PO Q2D@1800 [facility] Vital Signs (last) Temp Pulse Resp BP Pulse Ox 97.6 F 87 18 105/69 93 L 11/13/18 19:02 11/13/18 19:02 11/13/18 19:02 11/13/18 19:02 11/13/18 09:00 Intake and Output 11/11/18 11/12/18 11/13/18 23:59 23:59 23:59 Intake Total 300 Balance 300 Intake: IVPB 0 Oral 300 Other: Voiding Method Incontinent Incontinent Bowel Movement Yes: manually impacted Weight 212 lb Height 5 ft 7 in Body Mass Index (BMI) 33.2 Weight Measurement Method Patient Lift Scale Weight Measurement Method Est/Stated by Patient Laboratory 11/13/18 06:15 11/13/18 06:15 PT with INR 32.50 SEC (9.7-13.0) H 11/13/18 06:15 ESR: 89 CRP: 11.2 IMAGING I personally reviewed all radiographs, CT, and other imaging. They demonstrate bilateral advanced tricompartmental knee osteoarthritis (left worse than right) , characterized by osteophyte formation, joint space narrowing, and bone sclerosis. No acute fractures, dislocations, or bony lesions seen. ASSESSMENT AND PLAN Mr. Brown is a 78 year old male presenting with bilateral knee osteoarthritis - no signs of septic joint. We have reviewed the imaging and clinical findings in detail, as well as their potential implications. Plan: - Pain Control - DVT prophylaxis - Recommend MRI Lumbosacral Spine - Recommend Rheumatology consult for history of RA - Physical therapy for ROM and muscle strengthening of quadriceps and hamstring muscles. - Will follow All questions were answered. Thank you for involving our team in the care of this patient. Please have patient follow up in our office in 1-2 weeks .
[2018-11-13] MEDS: MONTELUKAST NA 10 MG TABLET PO SCH (21:52)
[2018-11-13] MEDS: POLYETHYLENE GLYCOL 3350 119 GM BTL PO SCH (21:54)
[2018-11-13] MEDS ORDERED: PATIENT'S OWN MEDICATION (NON-FORMULARY) (Cetirizine Hcl [Cetirizine Hcl] 10 MG) PO SCH (22:00)
[2018-11-14] MEDS: hydrALAZINE HCL 10 MG TABLET PO SCH ×3 (06:05→21:03)
[2018-11-14] MEDS: POLYETHYLENE GLYCOL 3350 119 GM BTL PO SCH ×3 (06:06→21:06)
[2018-11-14] MEDS: LEVOTHYROXINE NA 100 MCG TABLET (FP) PO SCH (06:08)
[2018-11-14] MEDS: DOCUSATE SODIUM 100 MG CAPSULE (FP) PO SCH ×3 (06:08→21:03)
[2018-11-14 07:16] LABS: BASO % 1.1 % (0-2.0); EOS % 3.1 % (0-4.5); HEMATOCRIT 34.9 % (35.4-49); HEMOGLOBIN 11.3 GM/dL (11.7-16.9); LYMPH % 23.7 % (8-40); MCH 30.4 pg (25.7-33.7); MCHC 32.2 g/dl (32.0-35.9); MEAN CELL VOLUME 94.1 fl (80-96); MEAN PLT VOLUME 7.2 fl (7.5-11.1); MONO % 9.5 % (3.8-10.2); NEUT % 62.6 % (42.8-82.8); PLATELET COUNT 467 K/MM3 (134-434); RBC 3.71 M/mm3 (4.00-5.60); RDW 14.2 % (11.9-15.9); WHITE BLOOD COUNT 8.2 K/mm3 (4.0-10.0)
[2018-11-14 07:58] LABS: ANION GAP 8 MMOL/L (8-16); BLOOD UREA NITROGEN 46 mg/dL (7-18); CALCIUM 7.8 mg/dL (8.5-10.1); CHLORIDE 108 mmol/L (98-107); CO2 25 mmol/L (21-32); CREATININE 2.1 mg/dL (0.55-1.3); GLUCOSE,RANDOM 96 mg/dL (74-106); MAGNESIUM 2.7 mg/dL (1.8-2.4); PHOSPHOROUS 2.7 mg/dL (2.5-4.9); POTASSIUM 3.5 mmol/L (3.5-5.1); SODIUM 141 mmol/L (136-145)
--- NOTE | 2018-11-14 11:39 | PN ---
Teaching Attending Note Name of Resident: Danita Desai ATTENDING PHYSICIAN STATEMENT I saw and evaluated the patient. I reviewed the resident's note and discussed the case with the resident. I agree with the resident's findings and plan as documented. SUBJECTIVE: No fever or chills . cont to have difficulty to ambulate and pain in knees. no SOB or CP OBJECTIVE: NAD CV: RRR, no MRG lungs: bibasilar fine crackles Abd: less distended soft, NL BS Ext: 2+ edema on feet. no erythema or increased warmth on knees. effusion in R knee. R knee anterior surgical scar deformities in hand joints ASSESSMENT AND PLAN: 78 y/o man with h/o RA , A fib on AC, COPD, HTN, Hodgkin's lymphoma, systolic heart failure, CKD4, and other medical problems who presented with b/l kne pain and inability to ambulate . 1- B/l Knee pain and effusion. could be due to OA or Rheumatoid arthritis . crystal induced is less likely. spetic joint is not suspected - appreciate ortho input - consult [facility]her[facility] - follow MRI of L spine - tylenol for pain - PT . 2- Constipation: no obstructionon KUB. had manual disimpaction yesterday - cont aggressive Bowel regimen 3- CKD: Cr at base line - cont lasix - f/u with renal as out pt 4- HTN: cont hydralazin and corg 5- A fib: - cont coreg and coumadin . repeat INR today 6- DVT PX : on coumadin
[2018-11-14] MEDS: BUDESONIDE/FORMETEROL FUMARATE 160/4.5 mcg INHALER IH SCH ×2 (11:43→21:06)
[2018-11-14] MEDS: TAMSULOSIN HCL 0.4 MG CAP PO SCH (11:44)
[2018-11-14] MEDS: FUROSEMIDE 40 MG TABLET (FP) PO SCH (11:44)
[2018-11-14] MEDS: CARVEDILOL 3.125 MG TABLET (FP) PO SCH ×2 (11:44→21:03)
[2018-11-14] MEDS: RANITIDINE HCL 150 MG TABLET (FP) PO SCH ×2 (11:44→21:03)
[2018-11-14] MEDS: SENNOSIDES 8.6MG TABLET (FP) PO SCH ×2 (11:44→21:03)
[2018-11-14] MEDS: LORATADINE 10 MG TABLET PO SCH (11:44)
--- NOTE | 2018-11-14 11:59 | PN ---
Progress Note (short form) - Note Progress Note: ORTHOPEDIC SURGERY PROGRESS NOTE Department of Orthopedic Surgery SUBJECTIVE No acute events overnight. No complaints currently. Denies chest pain, shortness of breath, or calf pain. No nausea or vomiting. Tolerating oral intake. Pain controlled, resting comfortably in bed. PHYSICAL EXAMINATION Right Upper Extremity: Skin warm, dry, and intact; no lesions, rashes or ulcers noted. Muscle mass equal and symmetric to contralateral side. No atrophy noted. No masses or effusions noted. No tenderness to palpation all joints; nontender throughout rest of extremity. Full passive and active ROM, free from pain. Joints stable with no pathologic laxity. M/R/U/MSK/AX motor intact; SILT distally; 2+ radial pulses; Cap refill brisk. Tone and reflexes normal. Left Upper Extremity: Skin warm, dry, and intact; no lesions, rashes or ulcers noted. Muscle mass equal and symmetric to contralateral side. No atrophy noted. No masses or effusions noted. No tenderness to palpation all joints; nontender throughout rest of extremity. Full passive and active ROM, free from pain. Joints stable with no pathologic laxity. M/R/U/MSK/AX motor intact; SILT distally; 2+ radial pulses; Cap refill brisk. Tone and reflexes normal. Right Lower Extremity: Skin warm, dry, and intact; no lesions, rashes or ulcers noted. Muscle mass equal and symmetric to contralateral side. No atrophy noted. No masses or effusions noted. Tender to palpation at lateral joint line knee; nontender throughout rest of extremity. No cords or calf tenderness Mild calf/ankle edema. Limited passive ROM, mild pain at extremes of flexion/ extension secondary to arthritis. He can flex his knee, but not extend it on his own. Joints stable with no pathologic laxity. EHL/TA/GS motor intact; SILT distally; 2+ DP pulses; Cap refill brisk. Tone and reflexes normal distally. He has a significant quadriceps weakness 1/5, and 4+/5 hamstring strength. No signs of septic joint. Left Lower Extremity: Skin warm, dry, and intact; no lesions, rashes or ulcers noted. Muscle mass equal and symmetric to contralateral side. No atrophy noted. No masses or effusions noted. Tender to palpation at medial joint line knee; nontender throughout rest of extremity. No cords or calf tenderness Mild calf/ankle edema. Limited passive ROM, mild pain at extremes of flexion/ extension secondary to arthritis. ROM is from 15-90 without pain. Joints stable with no pathologic laxity. EHL/TA/GS motor intact; SILT distally; 2+ DP pulses; Cap refill brisk. Tone and reflexes normal distally. He has a significant quadriceps weakness 1/5, and 4+/5 hamstring strength. No signs of septic joint. No Saddle parasthesias. Intake & Output 11/12/18 11/13/18 11/14/18 23:59 23:59 23:59 Intake Total 300 0 Balance 300 0 Intake: IV 0 0 SL 0 0 IVPB 0 Oral 300 Other: Voiding Method Incontinent Incontinent Bowel Movement Yes Weight 212 lb Height 5 ft 7 in Body Mass Index (BMI) 33.2 Weight Measurement Method Patient Lift Scale Weight Measurement Method Est/Stated by Patient Active Medications Generic Name Dose Route Start Last Admin Trade Name Freq PRN Reason Stop Dose Admin Acetaminophen 650 mg 11/12/18 21:27 Tylenol - PO Q4H PRN FEVER Budesonide/Formoterol Fumarate 2 puff 11/13/18 10:00 11/14/18 11:43 Symbicort 160/4.5mcg - IH 2 puff BID [facility] Administration Carvedilol 3.125 mg 11/13/18 10:00 11/14/18 11:44 Coreg - PO 3.125 mg BID [facility] Administration Docusate Sodium 100 mg 11/12/18 22:00 11/14/18 06:08 Colace - PO 100 mg TID [facility] Administration Furosemide 40 mg 11/14/18 10:00 11/14/18 11:44 Lasix - PO 40 mg DAILY [facility] Administration Hydralazine HCl 10 mg 11/13/18 06:00 11/14/18 06:05 Apresoline - PO 10 mg TID [facility] Administration Levothyroxine Sodium 100 mcg 11/13/18 07:00 11/14/18 06:08 Synthroid - PO 100 mcg DAILY@0700 [facility] Administration Loratadine 10 mg 11/13/18 10:00 11/14/18 11:44 Claritin - PO 10 mg DAILY [facility] Administration Montelukast Sodium 10 mg 11/13/18 22:00 11/13/18 21:52 Singulair - PO 10 mg HS [facility] Administration Non-Formulary Medication 137 mcg 11/13/18 10:00 Azelastine Hcl [Azelastine Hcl] PO DAILY [facility] Polyethylene Glycol 17 gm 11/13/18 22:00 11/14/18 06:06 Miralax (For Daily Use) - PO 17 grams TID [facility] Administration Ranitidine HCl 150 mg 11/13/18 10:00 11/14/18 11:44 Zantac - PO 150 mg BID [facility] Administration Senna 1 tab 11/12/18 22:00 11/14/18 11:44 Senna - PO 1 tab BID [facility] Administration Tamsulosin HCl 0.4 mg 11/13/18 08:30 11/14/18 11:44 Flomax - PO 0.4 mg DAILY@0830 [facility] Administration Warfarin Sodium 5 mg 11/13/18 18:00 11/13/18 18:14 Coumadin - PO 5 mg Q2D@1800 [facility] Administration Warfarin Sodium 2.5 mg 11/14/18 18:00 Coumadin - PO Q2D@1800 [facility] Vital Signs (last) Temp Pulse Resp BP Pulse Ox 97.9 F 78 18 112/64 93 L 11/14/18 06:00 11/14/18 06:00 11/14/18 06:00 11/14/18 06:00 11/13/18 21:00 Laboratory (coagulation) PT with INR 32.50 SEC (9.7-13.0) H 11/13/18 06:15 Laboratory 11/14/18 06:00 11/14/18 06:00 IMAGING MRI Lumbosacral spine pending ASSESSMENT AND PLAN Mr. Brown is a 78 year old male presenting with bilateral knee osteoarthritis - no signs of septic joint. We have reviewed the imaging and clinical findings in detail, as well as their potential implications. Plan: - Pain Control - DVT prophylaxis - Recommend MRI Lumbosacral Spine - Recommend Rheumatology consult for history of RA - Physical therapy for ROM and muscle strengthening of quadriceps and hamstring muscles. - Will follow All questions were answered. Thank you for involving our team in the care of this patient. Please have patient follow up in our office in 1-2 weeks .
--- NOTE | 2018-11-14 12:40 | PN ---
Physical Exam: SUBJECTIVE: Patient seen and examined. He is complaining of mild lower back pain and pain behind his left knee when bending, still unable to ambulate. No more BMs overnight or this morning. He denies fever, chills, rash, abdominal pain, nausea, vomiting. OBJECTIVE: Vital Signs Period Temp Pulse Resp BP Sys/Gomez Pulse Ox Last 24 Hr 97.6 F-98.0 F 68-93 18-18 102-114/56-70 93 GENERAL: The patient is awake, alert, and fully oriented, in no acute distress. HEAD: Normal with no signs of trauma. EYES: PERRL, extraocular movements intact, sclera anicteric, conjunctiva clear. No ptosis. ENT: Oropharynx clear without exudates, moist mucous membranes. NECK: Trachea midline, full range of motion, supple. LUNGS: Breath sounds equal, clear to auscultation bilaterally, no wheezes, no crackles, no accessory muscle use. HEART: Irregular rate and rhythm, S1, S2 without murmur, rub or gallop. ABDOMEN: Obese, soft, nontender, distended, normoactive bowel sounds, no guarding, no rebound. EXTREMITIES: 2+ pulses, warm, well-perfused, bilteral knee swelling,l more than right, no skin rash, no pain when bending extending right knee, mild tenderness posteriorily with flexing left knee, 3+ edema in feet bilaterally, 1+ above feet to knees NEURO: no facial asymmetry, motor 5/5 in upper extremities, 2/5 in lower extremities, sensation to light touch intact, gait not observed. PSYCH: Normal mood, normal affect. SKIN: Warm, dry, normal turgor, no rashes, well healed scar anterior left knee. Laboratory Results - last 24 hr 11/12/18 11/13/18 11/13/18 21:50 16:15 20:45 WBC RBC Hgb Hct MCV MCH MCHC RDW Plt Count MPV Absolute Neuts (auto) Neutrophils % Lymphocytes % Monocytes % Eosinophils % Basophils % Nucleated RBC % Sodium Potassium Chloride Carbon Dioxide Anion Gap BUN Creatinine Creat Clearance w eGFR Random Glucose Calcium Phosphorus Magnesium Ur Random Sodium 30 L Ur Random Potassium Ur Random Chloride Urine Creatinine Stool Occult Blood Negative Rheumatoid Arth Biomark 11.4 11/13/18 11/13/18 11/14/18 20:45 20:45 06:00 WBC 8.2 RBC 3.71 L Hgb 11.3 L Hct 34.9 L MCV 94.1 MCH 30.4 MCHC 32.2 RDW 14.2 Plt Count 467 H MPV 7.2 L Absolute Neuts (auto) 5.1 Neutrophils % 62.6 D Lymphocytes % 23.7 D Monocytes % 9.5 D Eosinophils % 3.1 D Basophils % 1.1 Nucleated RBC % 0 Sodium Potassium Chloride Carbon Dioxide Anion Gap BUN Creatinine Creat Clearance w eGFR Random Glucose Calcium Phosphorus Magnesium Ur Random Sodium 32 L Ur Random Potassium 28.5 Ur Random Chloride 11 L Urine Creatinine 111.0 H Stool Occult Blood Rheumatoid Arth Biomark 11/14/18 06:00 WBC RBC Hgb Hct MCV MCH MCHC RDW Plt Count MPV Absolute Neuts (auto) Neutrophils % Lymphocytes % Monocytes % Eosinophils % Basophils % Nucleated RBC % Sodium 141 Potassium 3.5 Chloride 108 H Carbon Dioxide 25 Anion Gap 8 BUN 46 H Creatinine 2.1 H Creat Clearance w eGFR 30.62 Random Glucose 96 Calcium 7.8 L Phosphorus 2.7 Magnesium 2.7 H Ur Random Sodium Ur Random Potassium Ur Random Chloride Urine Creatinine Stool Occult Blood Rheumatoid Arth Biomark Active Medications Generic Name Dose Route Start Last Admin Trade Name Freq PRN Reason Stop Dose Admin Acetaminophen 650 mg 11/12/18 21:27 Tylenol - PO Q4H PRN FEVER Budesonide/Formoterol Fumarate 2 puff 11/13/18 10:00 11/14/18 11:43 Symbicort 160/4.5mcg - IH 2 puff BID MIGUELITO Administration Carvedilol 3.125 mg 11/13/18 10:00 11/14/18 11:44 Coreg - PO 3.125 mg BID MIGUELITO Administration Docusate Sodium 100 mg 11/12/18 22:00 11/14/18 06:08 Colace - PO 100 mg TID MIGUELITO Administration Furosemide 40 mg 11/14/18 10:00 11/14/18 11:44 Lasix - PO 40 mg DAILY MIGUELITO Administration Hydralazine HCl 10 mg 11/13/18 06:00 11/14/18 06:05 Apresoline - PO 10 mg TID MIGUELITO Administration Levothyroxine Sodium 100 mcg 11/13/18 07:00 11/14/18 06:08 Synthroid - PO 100 mcg DAILY@0700 MIGUELITO Administration Loratadine 10 mg 11/13/18 10:00 11/14/18 11:44 Claritin - PO 10 mg DAILY MIGUELITO Administration Montelukast Sodium 10 mg 11/13/18 22:00 11/13/18 21:52 Singulair - PO 10 mg HS MIGUELITO Administration Non-Formulary Medication 137 mcg 11/13/18 10:00 Azelastine Hcl [Azelastine Hcl] PO DAILY [facility] Polyethylene Glycol 17 gm 11/13/18 22:00 11/14/18 06:06 Miralax (For Daily Use) - PO 17 grams TID MIGUELITO Administration Ranitidine HCl 150 mg 11/13/18 10:00 11/14/18 11:44 Zantac - PO 150 mg BID MIGUELITO Administration Senna 1 tab 11/12/18 22:00 11/14/18 11:44 Senna - PO 1 tab BID MIGUELITO Administration Tamsulosin HCl 0.4 mg 11/13/18 08:30 11/14/18 11:44 Flomax - PO 0.4 mg DAILY@0830 MIGUELITO Administration Warfarin Sodium 5 mg 11/13/18 18:00 11/13/18 18:14 Coumadin - PO 5 mg Q2D@1800 MIGUELITO Administration Warfarin Sodium 2.5 mg 11/14/18 18:00 Coumadin - PO Q2D@1800 MIGUELITO ASSESSMENT/PLAN: Patient is a 78 year old male with past medical history of RA, ILD, CKD stage 4 , Large cell lymphoma, systolic CHF, atrial fibrillation (on Coumadin), BPH and HTN, COPD, presented with bilateral knee pain for about 3 months, associated with difficulty ambulating since 1 week. Bilateral knee pain -possible OA vs RA vs gout, -Left knee xray and right knee xray: arthritic changes, no acute process -ESR 89, CRP, SENAIT, RF pending -Physical therapy requested, will be evaluated as priority tomorrow in the morning -Tylenol PRN for pain -Ortho (Dr. Rojas) consulted, will follow recommendations, MRI of lumbosacral spine ordered, Rheumatology consulted CKD -BUN/Cr 46/2.1 (baseline 40/2.4), improving -Avoid nephrotoxic agents -renal US no acute pathology, UA neg A.Fib. -Continue Coreg 3.125mg daily, continue Coumadin 5 mg q2d and 2.5 mg a2d -will f/u INR Constipation -KUB no obstruction -disimpaction done yesterday, no ore bowel movements since then -FOBT neg, ordered second one -Continue Senna and colace, miralax Systolic CHF -continue Lasix 40mg daily HTN controlled -Continue home Hydralazine 10mg TID and Coreg 3.125 mg BID -Will continue to monitor BP COPD -continue Symbicort 2 PUFF BID and Singulair 10 mg HS BPH: -continue Flomax 0.4 mg Hypothyroidism: -cont Synthroid 100 mcg FEN: no/no changes/Sodium controlled diet Prophylaxis -cont Coumadin Disposition -med-surg Problem List - Problems (1) CHF (congestive heart failure), NYHA class II Code(s): I50.9 - HEART FAILURE, UNSPECIFIED (2) Atrial fibrillation Code(s): I48.91 - UNSPECIFIED ATRIAL FIBRILLATION (3) Hypertension Code(s): I10 - ESSENTIAL (PRIMARY) HYPERTENSION (4) BPH (benign prostatic hyperplasia) Code(s): N40.0 - BENIGN PROSTATIC HYPERPLASIA WITHOUT LOWER URINRY TRACT SYMP (5) Hypothyroidism Code(s): E03.9 - HYPOTHYROIDISM, UNSPECIFIED (6) Hypothyroidism Code(s): E03.9 - HYPOTHYROIDISM, UNSPECIFIED (7) BIRD (acute kidney injury) Code(s): N17.9 - ACUTE KIDNEY FAILURE, UNSPECIFIED (8) Arthritis Code(s): M19.90 - UNSPECIFIED OSTEOARTHRITIS, UNSPECIFIED SITE (9) Inability to ambulate due to knee Code(s): R26.2 - DIFFICULTY IN WALKING, NOT ELSEWHERE CLASSIFIED Visit type - Emergency Visit Emergency Visit: Yes ED Registration Date: 11/12/18 Care time: The patient presented to the Emergency Department on the above date and was hospitalized for further evaluation of their emergent condition. - New Patient This patient is new to me today: Yes Date on this admission: 11/14/18 - Critical Care Critical Care patient: No - Discharge Referral Referred to [facility] No
[2018-11-14 12:51] LABS: INR 2.28 (0.83-1.09); PROTHROMBIN TIME (PATIENT) 27.1 SEC (9.7-13.0)
[2018-11-14] MEDS: WARFARIN NA 2.5 MG TABLET (FP) PO SCH (17:34)
[2018-11-14] MEDS ORDERED: WARFARIN NA 5 MG TABLET (UD) PO SCH ×2 (18:00)
[2018-11-14] MEDS: MONTELUKAST NA 10 MG TABLET PO SCH (21:03)
--- NOTE | 2018-11-14 22:53 | CONSULT ---
Consult Consult Specialty:: Rheumatology - History of Present Illness History of Present Illness: 78 y/o male with PMHx of Hodgkins lymphoma, Atrial fibrillation (on Warfarin), and mild deformity in hands admitted with pain and swelling of both knees. Four years ago, when the patient was undergoing chemotherapy, he had 2 sessions of hemodialysis. HPI. Deformities in the left hand. The patient ahs a 25 year history of not progressive deformity in the left 3rd and 4th finger (Soper neck deformity). He denies joint pain or morning stiffness, apparently he has not been treated by a fibre optic cable splicer and he never took medications for this problem. In this admission rheumatoid factor was negative. Bilateral knee pain. Three months ago the patient developed episodes of swelling and mild pain in both knees. During the acute attack he has difficulty in walking. On average he has had one episode every 2 weeks and it lasts 1 or 2 days without taking medications for this problem. In the last month he has had more difficulty in walking. He denies other joint involvement. The patient 's brother has gout. Laboratory work-up revealed ESR 89, creatinine on admission was 2.4 and today 2.1 and urinalysis was normal. Uric acid was 11.2 and rheumatoid factor was negative. X rays of the knees (unfortunately not weight bearing) revealed, in the left, mild narrowing of the medial and lateral compartment and chondrocalcinosis. IN the right femoral-tibial spaces were normal and there was chondrocalcinosis. - History Source History Provided By: Patient, Medical Record - Past Medical History Cardio/Vascular: Yes: AFIB Heme/Onc: Yes: Other (Hodgkin's lymphoma) - Alcohol/Substance Use Hx Alcohol Use: No - Smoking History Smoking history: Former smoker Have you smoked in the past 12 months: No If you are a former smoker, when did you quit?: pt states "years ago" Home Medications - Allergies Allergies/Adverse Reactions: Allergies Allergy/AdvReac Type Severity Reaction Status Date / Time No Known Allergies Allergy Verified 11/12/18 14:35 - Home Medications Home Medications: Ambulatory Orders Azelastine HCl 137 mcg PO DAILY 11/12/18 Budesonide/Formeterol Fumarate [SYMBICORT 160/4.5mcg -] 2 puff IH DAILY Carvedilol 3.125 mg PO BID 11/12/18 Cetirizine HCl 10 mg PO HS 11/12/18 Famotidine [Pepcid] 40 mg PO BID 11/12/18 Furosemide 40 mg PO DAILY 11/12/18 Hydralazine HCl 10 mg PO TID 11/12/18 Levothyroxine [Synthroid -] 100 mcg PO DAILY 11/12/18 Loratadine 10 mg PO DAILY 11/12/18 Montelukast Na [Singulair -] 10 mg PO HS 11/12/18 Tamsulosin HCl 0.4 mg PO DAILY 11/12/18 Warfarin Na [Coumadin -] 2.5 mg PO Q48H 11/12/18 Warfarin Na [Coumadin -] 5 mg PO Q48H 11/12/18 Carvedilol [Coreg -] 6.25 mg PO BID 11/13/18 Family Disease History - Family Disease History Family Disease History: Other: Brother (Gout.) Review of Systems - Review of Systems Constitutional: reports: Malaise Eyes: reports: No Symptoms HENT: reports: No Symptoms Neck: reports: No Symptoms Cardiovascular: reports: No Symptoms Respiratory: reports: No Symptoms Gastrointestinal: reports: No Symptoms Genitourinary: reports: No Symptoms Musculoskeletal: reports: Other (See HPI) Integumentary: reports: No Symptoms Physical Exam Vital Signs: Vital Signs Temperature 97.6 F 11/14/18 14:00 Pulse Rate 78 11/14/18 14:00 Respiratory Rate 18 11/14/18 20:54 Blood Pressure 102/66 11/14/18 14:00 O2 Sat by Pulse Oximetry (%) 94 L 11/14/18 20:54 Constitutional: Yes: Mild Distress Eyes: Yes: WNL HENT: Yes: WNL Neck: Yes: WNL Cardiovascular: Yes: WNL Respiratory: Yes: WNL Gastrointestinal: Yes: WNL Musculoskeletal: Yes: Other (Mild tenderness and swelling of the left knee. No other active joints. There was no tenderness or synovitis in hands. Non- fixed swan neck deformity in the left 4th finger.) Neurological: Yes: WNL Labs: CBC, BMP 11/14/18 06:00 11/14/18 06:00 Laboratory Tests 11/12/18 11/12/18 11/12/18 16:57 20:24 21:50 ESR 89 H Uric Acid 11.2 H Magnesium Total Bilirubin AST ALT Alkaline Phosphatase Total Protein Albumin TSH 2.99 Urine Color Ltyellow Urine Appearance Clear Urine pH 5.0 Ur Specific [place] 1.013 Urine Protein Negative Urine Glucose (UA) Negative Urine Ketones Negative Urine Blood Negative Urine Nitrite Negative Urine Bilirubin Negative Urine Urobilinogen Negative Ur Leukocyte Esterase Negative Rheumatoid Arth Biomark 11/12/18 11/13/18 21:50 06:15 ESR Uric Acid Magnesium 2.7 H Total Bilirubin 0.6 AST 27 ALT 33 Alkaline Phosphatase 107 Total Protein 6.6 Albumin 2.5 L TSH Urine Color Urine Appearance Urine pH Ur Specific [place] Urine Protein Urine Glucose (UA) Urine Ketones Urine Blood Urine Nitrite Urine Bilirubin Urine Urobilinogen Ur Leukocyte Esterase Rheumatoid Arth Biomark 11.4 Problem List - Problems (1) Knee swelling Assessment/Plan: Episodes of bilateral knee pain and swelling, chondrocalcinosis and elevated uric acid. Rule out pseudogout, rule out gouty arthritis. The patient is on warfarin and he has chronic kidney disease. He is not a candidate for NSAIDs or Colchicine. Plan: Start Prednisone 30 mg/d for 3 days with a tapering schedule. X rays of knees weight bearing. 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 Deformity probably related to volar displacement of the lateral bands of the extensor tendons. Rule out old trauma. The patient does not have pain in hands and does not require treatment for this problem. X rays of hands. Code(s): M20.032 - SWAN-NECK DEFORMITY OF LEFT FINGER(S)
[2018-11-15] MEDS: POLYETHYLENE GLYCOL 3350 119 GM BTL PO SCH ×3 (05:41→21:11)
[2018-11-15] MEDS: hydrALAZINE HCL 10 MG TABLET PO SCH ×3 (05:41→21:06)
[2018-11-15] MEDS: DOCUSATE SODIUM 100 MG CAPSULE (FP) PO SCH ×3 (05:41→21:06)
[2018-11-15] MEDS: LEVOTHYROXINE NA 100 MCG TABLET (FP) PO SCH (06:12)
[2018-11-15 07:07] LABS: EOS % 5.8 % (0-4.5); HEMATOCRIT 36.6 % (35.4-49); HEMOGLOBIN 11.7 GM/dL (11.7-16.9); MCH 30.1 pg (25.7-33.7); MCHC 31.9 g/dl (32.0-35.9); MEAN CELL VOLUME 94.2 fl (80-96); MONO % 9.3 % (3.8-10.2); NEUT % 61.9 % (42.8-82.8); PLATELET COUNT 457 K/MM3 (134-434); RBC 3.89 M/mm3 (4.00-5.60); RDW 14.5 % (11.9-15.9); WHITE BLOOD COUNT 8.7 K/mm3 (4.0-10.0)
[2018-11-15 07:22] LABS: INR 2.23 (0.83-1.09); PROTHROMBIN TIME (PATIENT) 26.5 SEC (9.7-13.0)
[2018-11-15 08:01] LABS: ALBUMIN 2.4 g/dl (3.4-5.0); ALK PHOS 82 U/L (45-117); ANION GAP 9 MMOL/L (8-16); BILIRUBIN,TOTAL 0.5 mg/dL (0.2-1); BLOOD UREA NITROGEN 41 mg/dL (7-18); CALCIUM 8.2 mg/dL (8.5-10.1); CHLORIDE 105 mmol/L (98-107); CO2 24 mmol/L (21-32); CREATININE 1.9 mg/dL (0.55-1.3); GLUCOSE,RANDOM 87 mg/dL (74-106); POTASSIUM 3.8 mmol/L (3.5-5.1); SGOT/AST 25 U/L (15-37); SGPT/ALT 30 U/L (13-61); SODIUM 139 mmol/L (136-145); TOT PROT 6.1 g/dl (6.4-8.2)
[2018-11-15] MEDS: TAMSULOSIN HCL 0.4 MG CAP PO SCH (09:00)
[2018-11-15] MEDS: CARVEDILOL 3.125 MG TABLET (FP) PO SCH ×2 (10:21→21:06)
[2018-11-15] MEDS: RANITIDINE HCL 150 MG TABLET (FP) PO SCH ×2 (10:21→21:05)
[2018-11-15] MEDS: BUDESONIDE/FORMETEROL FUMARATE 160/4.5 mcg INHALER IH SCH ×2 (10:21→21:10)
[2018-11-15] MEDS: FUROSEMIDE 40 MG TABLET (FP) PO SCH (10:22)
[2018-11-15] MEDS: LORATADINE 10 MG TABLET PO SCH (10:22)
[2018-11-15] MEDS: SENNOSIDES 8.6MG TABLET (FP) PO SCH ×2 (10:22→21:06)
--- NOTE | 2018-11-15 10:24 | PN ---
Progress Note (short form) - Note Progress Note: ORTHOPEDIC SURGERY PROGRESS NOTE Department of Orthopedic Surgery SUBJECTIVE No acute events overnight. No complaints currently. Denies chest pain, shortness of breath, or calf pain. No nausea or vomiting. Tolerating oral intake. Pain controlled, resting comfortably in bed. No changes since yesterday. PHYSICAL EXAMINATION Right Upper Extremity: Skin warm, dry, and intact; no lesions, rashes or ulcers noted. Muscle mass equal and symmetric to contralateral side. No atrophy noted. No masses or effusions noted. No tenderness to palpation all joints; nontender throughout rest of extremity. Full passive and active ROM, free from pain. Joints stable with no pathologic laxity. M/R/U/MSK/AX motor intact; SILT distally; 2+ radial pulses; Cap refill brisk. Tone and reflexes normal. Left Upper Extremity: Skin warm, dry, and intact; no lesions, rashes or ulcers noted. Muscle mass equal and symmetric to contralateral side. No atrophy noted. No masses or effusions noted. No tenderness to palpation all joints; nontender throughout rest of extremity. Full passive and active ROM, free from pain. Joints stable with no pathologic laxity. M/R/U/MSK/AX motor intact; SILT distally; 2+ radial pulses; Cap refill brisk. Tone and reflexes normal. Right Lower Extremity: Skin warm, dry, and intact; no lesions, rashes or ulcers noted. Muscle mass equal and symmetric to contralateral side. No atrophy noted. No masses or effusions noted. Tender to palpation at lateral joint line knee; nontender throughout rest of extremity. No cords or calf tenderness Mild calf/ankle edema. Limited passive ROM, mild pain at extremes of flexion/ extension secondary to arthritis. He can flex his knee, but not extend it on his own. Joints stable with no pathologic laxity. EHL/TA/GS motor intact; SILT distally; 2+ DP pulses; Cap refill brisk. Tone and reflexes normal distally. He has a significant quadriceps weakness 1/5, and 4+/5 hamstring strength. No signs of septic joint. Left Lower Extremity: Skin warm, dry, and intact; no lesions, rashes or ulcers noted. Muscle mass equal and symmetric to contralateral side. No atrophy noted. No masses or effusions noted. Tender to palpation at medial joint line knee; nontender throughout rest of extremity. No cords or calf tenderness Mild calf/ankle edema. Limited passive ROM, mild pain at extremes of flexion/ extension secondary to arthritis. ROM is from 15-90 without pain. Joints stable with no pathologic laxity. EHL/TA/GS motor intact; SILT distally; 2+ DP pulses; Cap refill brisk. Tone and reflexes normal distally. He has a significant quadriceps weakness 1/5, and 4+/5 hamstring strength. No signs of septic joint. No Saddle parasthesias. Intake & Output 11/13/18 11/14/18 11/15/18 23:59 23:59 23:59 Intake Total 300 490 200 Balance 300 490 200 Intake: IV 0 0 SL 0 0 IVPB 0 Oral 300 490 200 Other: Voiding Method Incontinent Incontinent # Unmeasured Voids Void 2 2 Bowel Movement Yes Yes # Bowel Movements 1 Weight 212 lb Height 5 ft 7 in Body Mass Index (BMI) 33.2 Active Medications Generic Name Dose Route Start Last Admin Trade Name Freq PRN Reason Stop Dose Admin Acetaminophen 650 mg 11/12/18 21:27 Tylenol - PO Q4H PRN FEVER Budesonide/Formoterol Fumarate 2 puff 11/13/18 10:00 11/15/18 10:21 Symbicort 160/4.5mcg - IH 2 puff BID MIGUELITO Administration Carvedilol 3.125 mg 11/13/18 10:00 11/15/18 10:21 Coreg - PO 3.125 mg BID MIGUELITO Administration Docusate Sodium 100 mg 11/12/18 22:00 11/15/18 05:41 Colace - PO 100 mg TID MIGUELITO Administration Furosemide 40 mg 11/14/18 10:00 11/15/18 10:22 Lasix - PO 40 mg DAILY MIGUELITO Administration Hydralazine HCl 10 mg 11/13/18 06:00 11/15/18 05:41 Apresoline - PO 10 mg TID MIGUELITO Administration Levothyroxine Sodium 100 mcg 11/13/18 07:00 11/15/18 06:12 Synthroid - PO 100 mcg DAILY@0700 MIGUELITO Administration Loratadine 10 mg 11/13/18 10:00 11/15/18 10:22 Claritin - PO 10 mg DAILY MIGUELITO Administration Montelukast Sodium 10 mg 11/13/18 22:00 11/14/18 21:03 Singulair - PO 10 mg HS MIGUELITO Administration Non-Formulary Medication 137 mcg 11/13/18 10:00 Azelastine Hcl [Azelastine Hcl] PO DAILY [facility] Polyethylene Glycol 17 gm 11/13/18 22:00 11/15/18 05:41 Miralax (For Daily Use) - PO Not Given TID [facility] Prednisone 30 mg 11/15/18 08:00 Deltasone - PO 11/17/18 08:01 DAILY@0800 [facility] Prednisone 10 mg 11/18/18 08:00 Deltasone - PO 11/20/18 08:01 DAILY@0800 [facility] Prednisone 5 mg 11/21/18 08:00 Deltasone - PO 11/23/18 08:01 DAILY@0800 [facility] Ranitidine HCl 150 mg 11/13/18 10:00 11/15/18 10:21 Zantac - PO 150 mg BID MIGUELITO Administration Senna 1 tab 11/12/18 22:00 11/15/18 10:22 Senna - PO 1 tab BID MIGUELITO Administration Tamsulosin HCl 0.4 mg 11/13/18 08:30 11/15/18 09:00 Flomax - PO 0.4 mg DAILY@0830 [facility] Administration Warfarin Sodium 5 mg 11/13/18 18:00 11/13/18 18:14 Coumadin - PO 5 mg Q2D@1800 MIGUELITO Administration Warfarin Sodium 2.5 mg 11/14/18 18:00 11/14/18 17:34 Coumadin - PO 2.5 mg Q2D@1800 MIGUELITO Administration Vital Signs (last) Temp Pulse Resp BP Pulse Ox 97.8 F 80 18 120/73 94 L 11/15/18 10:00 11/15/18 10:00 11/15/18 10:00 11/15/18 10:00 11/14/18 20:54 Laboratory (coagulation) PT with INR 26.50 SEC (9.7-13.0) H 11/15/18 06:00 Laboratory 11/15/18 06:00 11/15/18 06:00 IMAGING MRI Lumbosacral spine still pending ASSESSMENT AND PLAN Mr. Brown is a 78 year old male presenting with bilateral knee osteoarthritis - no signs of septic joint. We have reviewed the imaging and clinical findings in detail, as well as their potential implications. Plan: - Pain Control - DVT prophylaxis - Recommend MRI Lumbosacral Spine - Rheumatology consult appreciated - Physical therapy for ROM and muscle strengthening of quadriceps and hamstring muscles. - Will follow All questions were answered. Thank you for involving our team in the care of this patient. Please have patient follow up in our office in 1-2 weeks .
[2018-11-15] MEDS: predniSONE 10 MG TABLET (UD) PO SCH (10:29)
--- NOTE | 2018-11-15 16:20 | PN ---
Progress Note (short form) - Note Progress Note: Subjective: no fever , no chills. still unable to ambulate . knee pain . Objective: Vital Signs: Last Vital Signs Temp Pulse Resp BP Pulse Ox 97.8 F 85 20 107/70 96 11/15/18 15:17 11/15/18 15:17 11/15/18 15:17 11/15/18 15:17 11/15/18 09:00 Laboratory Results - last 24 hr 11/12/18 11/15/18 11/15/18 21:50 06:00 06:00 WBC 8.7 RBC 3.89 L Hgb 11.7 Hct 36.6 MCV 94.2 MCH 30.1 MCHC 31.9 L RDW 14.5 Plt Count 457 H MPV 7.0 L Absolute Neuts (auto) 5.4 Neutrophils % 61.9 Lymphocytes % 22.0 Monocytes % 9.3 Eosinophils % 5.8 H D Basophils % 1.0 Nucleated RBC % 0 PT with INR 26.50 H INR 2.23 H Sodium Potassium Chloride Carbon Dioxide Anion Gap BUN Creatinine Creat Clearance w eGFR Random Glucose Calcium Total Bilirubin AST ALT Alkaline Phosphatase Total Protein Albumin SENAIT Screen Negative 11/15/18 06:00 WBC RBC Hgb Hct MCV MCH MCHC RDW Plt Count MPV Absolute Neuts (auto) Neutrophils % Lymphocytes % Monocytes % Eosinophils % Basophils % Nucleated RBC % PT with INR INR Sodium 139 Potassium 3.8 Chloride 105 Carbon Dioxide 24 Anion Gap 9 BUN 41 H Creatinine 1.9 H Creat Clearance w eGFR 34.37 Random Glucose 87 Calcium 8.2 L Total Bilirubin 0.5 AST 25 ALT 30 Alkaline Phosphatase 82 Total Protein 6.1 L Albumin 2.4 L SENAIT Screen Physical Exam: NAD CV: RRR, no MRG lungs: bibasilar fine crackles Abd: less distended soft, NL BS Ext: 2+ edema on feet. no erythema or increased warmth on knees. R knee anterior surgical scar deformities in hand joints ASSESSMENT AND PLAN: 78 y/o man with h/o RA , A fib on AC, COPD, HTN, Hodgkin's lymphoma, systolic heart failure, CKD4, and other medical problems who presented with b/l kne pain and inability to ambulate . 1- B/l Knee pain and effusion. - cont steroids empirically for possible crystal induced arthritis - MRI noted. consult dr. choudri - tylenol for pain - PT . 2- Constipation: - cont aggressive Bowel regimen 3- CKD: Cr at base line - cont lasix - f/u with renal as out pt 4- HTN: cont hydralazin and corg 5- A fib: - cont coreg and coumadin. 6- DVT PX : on coumadin need rehab placement . if no indication for any lumbar intervention , then can leave tomorrow if bed is available Visit type - Emergency Visit Emergency Visit: Yes ED Registration Date: 11/12/18 Care time: The patient presented to the Emergency Department on the above date and was hospitalized for further evaluation of their emergent condition. - New Patient This patient is new to me today: No - Critical Care Critical Care patient: No
[2018-11-15] MEDS: WARFARIN NA 5 MG TABLET (UD) PO SCH (17:29)
[2018-11-15] MEDS: MONTELUKAST NA 10 MG TABLET PO SCH (21:06)
[2018-11-16] MEDS: hydrALAZINE HCL 10 MG TABLET PO SCH ×3 (06:01→21:19)
[2018-11-16] MEDS: DOCUSATE SODIUM 100 MG CAPSULE (FP) PO SCH ×3 (06:01→21:20)
[2018-11-16] MEDS: POLYETHYLENE GLYCOL 3350 119 GM BTL PO SCH (06:01)
[2018-11-16] MEDS: LEVOTHYROXINE NA 100 MCG TABLET (FP) PO SCH (06:01)
[2018-11-16 08:40] LABS: INR 1.95 (0.83-1.09); PROTHROMBIN TIME (PATIENT) 23.2 SEC (9.7-13.0)
[2018-11-16] MEDS: predniSONE 10 MG TABLET (UD) PO SCH (08:52)
[2018-11-16] MEDS: TAMSULOSIN HCL 0.4 MG CAP PO SCH (08:53)
[2018-11-16] MEDS: LORATADINE 10 MG TABLET PO SCH (09:01)
[2018-11-16] MEDS: RANITIDINE HCL 150 MG TABLET (FP) PO SCH ×2 (09:01→21:20)
[2018-11-16] MEDS: FUROSEMIDE 40 MG TABLET (FP) PO SCH (09:01)
[2018-11-16] MEDS: CARVEDILOL 3.125 MG TABLET (FP) PO SCH ×2 (09:01→21:20)
[2018-11-16] MEDS: BUDESONIDE/FORMETEROL FUMARATE 160/4.5 mcg INHALER IH SCH ×2 (09:01→21:21)
[2018-11-16 09:02] LABS: ANION GAP 8 MMOL/L (8-16); BLOOD UREA NITROGEN 40 mg/dL (7-18); CALCIUM 7.9 mg/dL (8.5-10.1); CHLORIDE 109 mmol/L (98-107); CO2 25 mmol/L (21-32); GLUCOSE,RANDOM 87 mg/dL (74-106); SODIUM 141 mmol/L (136-145)
[2018-11-16] MEDS: SENNOSIDES 8.6MG TABLET (FP) PO SCH ×3 (09:03→21:20)
--- NOTE | 2018-11-16 14:57 | PN ---
Progress Note (short form) - Note Progress Note: ORTHOPEDIC SURGERY PROGRESS NOTE Department of Orthopedic Surgery SUBJECTIVE No acute events overnight. No complaints currently. Denies chest pain, shortness of breath, or calf pain. No nausea or vomiting. Tolerating oral intake. Pain controlled, resting comfortably in bed. No changes since yesterday. PHYSICAL EXAMINATION Right Upper Extremity: Skin warm, dry, and intact; no lesions, rashes or ulcers noted. Muscle mass equal and symmetric to contralateral side. No atrophy noted. No masses or effusions noted. No tenderness to palpation all joints; nontender throughout rest of extremity. Full passive and active ROM, free from pain. Joints stable with no pathologic laxity. M/R/U/MSK/AX motor intact; SILT distally; 2+ radial pulses; Cap refill brisk. Tone and reflexes normal. Left Upper Extremity: Skin warm, dry, and intact; no lesions, rashes or ulcers noted. Muscle mass equal and symmetric to contralateral side. No atrophy noted. No masses or effusions noted. No tenderness to palpation all joints; nontender throughout rest of extremity. Full passive and active ROM, free from pain. Joints stable with no pathologic laxity. M/R/U/MSK/AX motor intact; SILT distally; 2+ radial pulses; Cap refill brisk. Tone and reflexes normal. Right Lower Extremity: Skin warm, dry, and intact; no lesions, rashes or ulcers noted. Muscle mass equal and symmetric to contralateral side. No atrophy noted. No masses or effusions noted. Tender to palpation at lateral joint line knee; nontender throughout rest of extremity. No cords or calf tenderness Mild calf/ankle edema. Limited passive ROM, mild pain at extremes of flexion/ extension secondary to arthritis. He can flex his knee, but not extend it on his own. Joints stable with no pathologic laxity. EHL/TA/GS motor intact; SILT distally; 2+ DP pulses; Cap refill brisk. Tone and reflexes normal distally. He has a significant quadriceps weakness 1/5, and 4+/5 hamstring strength. No signs of septic joint. Mild effusion. Left Lower Extremity: Skin warm, dry, and intact; no lesions, rashes or ulcers noted. Muscle mass equal and symmetric to contralateral side. No atrophy noted. No masses or effusions noted. Tender to palpation at medial joint line knee; nontender throughout rest of extremity. No cords or calf tenderness Mild calf/ankle edema. Limited passive ROM, mild pain at extremes of flexion/ extension secondary to arthritis. ROM is from 15-90 without pain. Joints stable with no pathologic laxity. EHL/TA/GS motor intact; SILT distally; 2+ DP pulses; Cap refill brisk. Tone and reflexes normal distally. He has a significant quadriceps weakness 1/5, and 4+/5 hamstring strength. No signs of septic joint. No Saddle parasthesias. Intake & Output 11/14/18 11/15/18 11/16/18 23:59 23:59 23:59 Intake Total 490 750 150 Balance 490 750 150 Intake: IV 0 SL 0 Oral 490 750 150 Other: Voiding Method Incontinent Incontinent Diaper # Unmeasured Voids Void 2 2 2 Bowel Movement Yes Yes No # Bowel Movements 1 Weight 212 lb Height 5 ft 7 in Body Mass Index (BMI) 33.2 Active Medications Generic Name Dose Route Start Last Admin Trade Name Freq PRN Reason Stop Dose Admin Acetaminophen 650 mg 11/12/18 21:27 Tylenol - PO Q4H PRN FEVER Budesonide/Formoterol Fumarate 2 puff 11/13/18 10:00 11/16/18 09:01 Symbicort 160/4.5mcg - IH 2 puff BID [facility] Administration Carvedilol 3.125 mg 11/13/18 10:00 11/16/18 09:01 Coreg - PO 3.125 mg BID [facility] Administration Docusate Sodium 100 mg 11/12/18 22:00 11/16/18 06:01 Colace - PO 100 mg TID [facility] Administration Furosemide 40 mg 11/14/18 10:00 11/16/18 09:01 Lasix - PO 40 mg DAILY [facility] Administration Hydralazine HCl 10 mg 11/16/18 10:00 11/16/18 10:08 Apresoline - PO Not Given BID [facility] Levothyroxine Sodium 100 mcg 11/13/18 07:00 11/16/18 06:01 Synthroid - PO 100 mcg DAILY@0700 [facility] Administration Loratadine 10 mg 11/13/18 10:00 11/16/18 09:01 Claritin - PO 10 mg DAILY [facility] Administration Montelukast Sodium 10 mg 11/13/18 22:00 11/15/18 21:06 Singulair - PO 10 mg HS [facility] Administration Non-Formulary Medication 137 mcg 11/13/18 10:00 Azelastine Hcl [Azelastine Hcl] PO DAILY [facility] Polyethylene Glycol 17 gm 11/17/18 10:00 Miralax (For Daily Use) - PO DAILY [facility] Prednisone 30 mg 11/15/18 08:00 11/16/18 08:52 Deltasone - PO 11/17/18 08:01 30 mg DAILY@0800 [facility] Administration Prednisone 10 mg 11/18/18 08:00 Deltasone - PO 11/20/18 08:01 DAILY@0800 [facility] Prednisone 5 mg 11/21/18 08:00 Deltasone - PO 11/23/18 08:01 DAILY@0800 [facility] Ranitidine HCl 150 mg 11/13/18 10:00 11/16/18 09:01 Zantac - PO 150 mg BID [facility] Administration Senna 1 tab 11/12/18 22:00 11/16/18 09:04 Senna - PO Not Given BID [facility] Tamsulosin HCl 0.4 mg 11/13/18 08:30 11/16/18 08:53 Flomax - PO 0.4 mg DAILY@0830 [facility] Administration Warfarin Sodium 5 mg 11/13/18 18:00 11/15/18 17:29 Coumadin - PO 5 mg Q2D@1800 [facility] Administration Warfarin Sodium 2.5 mg 11/14/18 18:00 11/14/18 17:34 Coumadin - PO 2.5 mg Q2D@1800 [facility] Administration Vital Signs (last) Temp Pulse Resp BP Pulse Ox 97.8 F 79 20 104/65 100 11/16/18 13:26 11/16/18 13:26 11/16/18 13:26 11/16/18 13:26 11/15/18 21:00 Laboratory (coagulation) PT with INR 23.20 SEC (9.7-13.0) H 11/16/18 07:55 Laboratory 11/15/18 06:00 11/16/18 07:55 ASSESSMENT AND PLAN Mr. Brown is a 78 year old male presenting with bilateral knee osteoarthritis - no signs of septic joint. We have reviewed the imaging and clinical findings in detail, as well as their potential implications. Plan: - I think it's reasonable to aspirate the mild effusion in the right knee for diagnostic and therapeutic purposes. - Follow up cultures, crystals, cell count, gram stain right knee synovial fluid aspirate - Pain Control - DVT prophylaxis - MRI Lumbosacral spine discussed with Dr. Sandoval. Unlikely causing his quadriceps weakening. - Rheumatology consult appreciated; Discussed case with Dr. Swift. - Physical Therapy for ROM and muscle strengthening of quadriceps and hamstring muscles. - Will follow; If cell count and gram stain are negative, patient can be discharged to rehab and cultures can be followed up as outpatient. - Please have patient follow up in our office in 1-2 weeks [phone]. Procedure Note for Right Knee Aspiration: We discussed the risks and benefits of the right knee aspiration today, including the risk of infection, fat necrosis, as well as post-aspiration flare , continued pain, recurrance of effusion, and the patient elected to proceed and signed informed consent. After confirmation of the appropriate injection site, under sterile conditions, an 18G needle was used to aspirate the joint. 5cc's of serosanguinous fluid was aspirated from the knee. There was no sign of infection. The needle was removed, and a sterile 4x4 dressing with SCOTT bandage was applied. The patient tolerated this well. All questions were answered. Thank you for involving our team in the care of this patient. .
--- NOTE | 2018-11-16 15:32 | CONSULT ---
Consult - text type - Consultation Consultation Note: NEUROSURGERY CONSULTATION Praveen Brown is a 78 year old male who was recently admitted with gait difficulty which developed over the past month. He describes an insidious onset with no antecedent accident or injury which may be causative. The patient denies any back pain or radicular pain. He also denies any sensory abnormalities. He describes his legs as being "weak" and indicates that his knees are swollen. On Physical exam, his knee flexion/extension is limited, but his iliopsoas function is 4+/5 bilaterally and he has full strength distally. He has minimal tenderness to palpation of his Lumbar spine. 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 There is moderate spondylosis at L23, L34 and L45 as well. Although the identified pathology in the Lumbar spine may contribute to gait difficulties and may be amenable to surgical intervention, his lack of complaints of pain suggest against intervention at this time. He may be quite stoic, however, there is no urgency to spinal intervention in the absence of clear fixed motor deficit attributable to the spinal pathology and no bowel/ bladder deficits or intractable pain. The patient is wearing a diaper, however, it appears that this is due to the fact that he is bedbound from his knee pathology. I discussed this case with Dr. Wetzel and Dr. Rojas and agree with consideration for focussing on the knee pathology as the initial line of care. If he does not respond to a comprehensive attempt to address his knee pathology , we can revisit the potential role of Lumbar spine intervention.
--- NOTE | 2018-11-16 15:39 | PN ---
Teaching Attending Note Name of Resident: Katie Agrawal ATTENDING PHYSICIAN STATEMENT I saw and evaluated the patient. I reviewed the resident's note and discussed the case with the resident. I agree with the resident's findings and plan as documented. SUBJECTIVE: pain in knees. No fever or chills . No SOB . had 2 Bm yesterday and 3 the day before OBJECTIVE: NAD CV: RRR, no MRG lungs: bibasilar fine crackles Abd: less distended soft, NL BS Ext: 2+ edema on feet. no erythema or increased warmth on knees. R knee anterior surgical scar deformities in hand joints strength 4/5 both hip flexion , 5/5 knee extension and ankle dorsiflexion and plantar flexion ASSESSMENT AND PLAN: 78 y/o man with h/o RA , A fib on AC, COPD, HTN, Hodgkin's lymphoma, systolic heart failure, CKD4, and other medical problems who presented with b/l kne pain and inability to ambulate . 1- B/l Knee pain and effusion. - cont steroids empirically for possible crystal induced arthritis - MRI findings discussed whi Dr. Menezes. Recs to revisit after treating the knee problem . f/u as out pt - tylenol for pain - PT . 2- Constipation: - cont bowel regimen . decrease miralax to daily 3- CKD: Cr at base line - cont lasix - f/u with renal as out pt 4- HTN: cont coreg. decrease HZN to BID as BP is borderline 5- A fib: - cont coreg and coumadin. iNR noted , will repeat tomorrow 6- DVT PX : on coumadin medically ready for DC . pending NH placement
--- NOTE | 2018-11-16 16:31 | EKG ---
Test Reason : Blood Pressure : / mmHG Vent. Rate : 078 BPM Atrial Rate : 078 BPM P-R Int : 118 ms QRS Dur : 096 ms QT Int : 392 ms P-R-T Axes : -04 -19 021 degrees QTc Int : 446 ms NORMAL SINUS RHYTHM NORMAL ECG NO PREVIOUS ECGS AVAILABLE Confirmed by PURA LLAMAS MD ([id number]) on 11/16/2018 4:30:58 PM Referred By: Confirmed By:PURA LLAMAS MD
[2018-11-16 17:09] LABS: INR 2.04 (0.83-1.09); PROTHROMBIN TIME (PATIENT) 24.3 SEC (9.7-13.0)
--- NOTE | 2018-11-16 17:47 | PN ---
Physical Exam: SUBJECTIVE: Patient seen and examined at bedside this morning. Patient eating breakfast, no new complaints. No acute events overnight. Patient reported having bowel movements everyday since the disimpaction. Denies fever, chills, headache, weakness, numbness, chest pain, SOB, abdominal pain, diarrhea, urinary symptoms. OBJECTIVE: Vital Signs Period Temp Pulse Resp BP Sys/Gomez Pulse Ox Last 24 Hr 97.7 F-98.4 F 67-96 18-20 104-116/64-76 100-100 GENERAL: The patient is awake, alert, and fully oriented, in no acute distress. NECK: Trachea midline, full range of motion, supple. LUNGS: clear breath sounds, good air entry. HEART: Regular rate and rhythm, S1, S2 without murmur, rub or gallop. ABDOMEN: Soft, nontender, nondistended, normoactive bowel sounds, no guarding, no rebound, no hepatosplenomegaly, no masses. EXTREMITIES: 2+ pulses, warm, well-perfused, no edema. +2 peripheral edema on both feet. MSK: b/l UE: motor strength 5/5, sensation intact, ROM intact, +swan neck deformity on 3rd and 4th digits of left hand. +ulnar deformity b/l hands. LLE: 3 /5 hip flexion, 4/5 knee flexion, extension limited by pain, sensation intact. RLE: 3/5 hip flexion, 4/5 knee flexion, extension, plantar flexion, dorsiflexion limited by pain. NEUROLOGICAL: Cranial nerves II through XII grossly intact. Normal speech, gait not observed. PSYCH: Normal mood, normal affect. SKIN: Warm, dry, normal turgor, no rashes or lesions noted Laboratory Results - last 24 hr 11/15/18 11/16/18 11/16/18 15:10 07:55 07:55 PT with INR 23.20 H INR 1.95 H Sodium 141 Potassium 4.0 Chloride 109 H Carbon Dioxide 25 Anion Gap 8 BUN 40 H Creatinine 2.0 H Creat Clearance w eGFR 32.39 Random Glucose 87 Calcium 7.9 L Stool Occult Blood Negative 11/16/18 15:45 PT with INR 24.30 H INR 2.04 H Sodium Potassium Chloride Carbon Dioxide Anion Gap BUN Creatinine Creat Clearance w eGFR Random Glucose Calcium Stool Occult Blood Active Medications Generic Name Dose Route Start Last Admin Trade Name Freq PRN Reason Stop Dose Admin Acetaminophen 650 mg 11/12/18 21:27 Tylenol - PO Q4H PRN FEVER Budesonide/Formoterol Fumarate 2 puff 11/13/18 10:00 11/16/18 09:01 Symbicort 160/4.5mcg - IH 2 puff BID [facility] Administration Carvedilol 3.125 mg 11/13/18 10:00 11/16/18 09:01 Coreg - PO 3.125 mg BID [facility] Administration Docusate Sodium 100 mg 11/12/18 22:00 11/16/18 15:28 Colace - PO Not Given TID [facility] Furosemide 40 mg 11/14/18 10:00 11/16/18 09:01 Lasix - PO 40 mg DAILY [facility] Administration Hydralazine HCl 10 mg 11/16/18 10:00 11/16/18 10:08 Apresoline - PO Not Given BID [facility] Levothyroxine Sodium 100 mcg 11/13/18 07:00 11/16/18 06:01 Synthroid - PO 100 mcg DAILY@0700 [facility] Administration Loratadine 10 mg 11/13/18 10:00 11/16/18 09:01 Claritin - PO 10 mg DAILY [facility] Administration Montelukast Sodium 10 mg 11/13/18 22:00 11/15/18 21:06 Singulair - PO 10 mg HS [facility] Administration Non-Formulary Medication 137 mcg 11/13/18 10:00 Azelastine Hcl [Azelastine Hcl] PO DAILY [facility] Polyethylene Glycol 17 gm 11/17/18 10:00 Miralax (For Daily Use) - PO DAILY [facility] Prednisone 30 mg 11/15/18 08:00 11/16/18 08:52 Deltasone - PO 11/17/18 08:01 30 mg DAILY@0800 [facility] Administration Prednisone 10 mg 11/18/18 08:00 Deltasone - PO 11/20/18 08:01 DAILY@0800 [facility] Prednisone 5 mg 11/21/18 08:00 Deltasone - PO 11/23/18 08:01 DAILY@0800 [facility] Ranitidine HCl 150 mg 11/13/18 10:00 11/16/18 09:01 Zantac - PO 150 mg BID [facility] Administration Senna 1 tab 11/12/18 22:00 11/16/18 09:04 Senna - PO Not Given BID [facility] Tamsulosin HCl 0.4 mg 11/13/18 08:30 11/16/18 08:53 Flomax - PO 0.4 mg DAILY@0830 [facility] Administration Warfarin Sodium 5 mg 11/13/18 18:00 11/15/18 17:29 Coumadin - PO 5 mg Q2D@1800 [facility] Administration Warfarin Sodium 2.5 mg 11/14/18 18:00 11/14/18 17:34 Coumadin - PO 2.5 mg Q2D@1800 [facility] Administration ASSESSMENT/PLAN: Patient is a 78 year old male with past medical history of ILD, CKD stage 4, Large cell lymphoma, systolic CHF (NYHA class 2), paroxysmal atrial fibrillation (on coumadin), BPH and HTN, presented with bilateral knee pain for about 3 months, associated with difficulty ambulating since 1 week. #Bilateral knee pain: possible osteoarthritis vs rheumatoid arthritis vs gout ( Uric acid 11.2) -Left knee xray (05/2017):Medial compartment and patellofemoral joint space narrowing with small periarticular osteophytes. Small suprapaterllar effusion. Vascular calcifications. -Left knee xray: arthritic changes with joint effusion but no sign of fracture or subluxation -Right knee xray: small joint effusion, anterior soft tissue calcifications and possible old osteophyte fracture of the superior aspect of the patella. Arthritic changes are noted.An acute process is not seen. -ESR, CRP, SENAIT, RF pending -Physical therapy -Tylenol PRN for pain -Ortho (Dr. Rojas) consulted. Recommendations appreciated. -Right knee aspiration done. Synovial fluid sent for culture, gram stain, cell count and crystals. -Left knee has minimal fluid. No aspiration done. -Rheumatology (Dr. Swift) consulted. Recommendations appreciated. -Rule out pseudogout, rule out gouty arthritis -Patient on warfarin and has CKD. Not a candidate for NSAIDs or Colchicine -Start Prednisone 30mg/day for 3 days with a tapering schedule. -Xrays of knees weight bearing. -[place] neck deformity likely from previous trauma/fracture, unlikely RA or any inflammatory arthritis. #CKD -BUN/Cr at baseline -Renal/kidney US done -Avoid nephrotoxic agents such as NSAIDs, aminoglycosides, contrast. #Paroxysmal atrial fibrillation -Continue Coreg 3.125mg daily. -Continue Coumadin as dosed by primary care doctor. Coumadin 5mg q2d, alternating with 2.5mg q2d. #Constipation: likely 2/2 fecal impaction: resolved -Abdominal xray done: nonspecific, nonobstruction -[place]: +firm stool on anal vault, no masses, no hemorrhoids appreciated. +blood- tinged stool noted. -Stool occult blood -negative -Fecal disimpaction done. Patient started to have BM -Continue Senna, colace and miralax PRN #systolic CHF: not in exacerbation -Continue Lasix 40mg daily. #HTN: controlled -Continue home Hydralazine 10mg TID -Coreg 3.125 mg BID -Will continue to monitor BP #FEN -Not on any standing fluids. -Electrolytes wnl, routine bmp monitoring -Sodium controlled diet. #Prophylaxis -On coumadin ASDIR #Disposition -full code -admit to med-surg -Accepted at [facility] Visit type - Emergency Visit Emergency Visit: Yes ED Registration Date: 11/12/18 Care time: The patient presented to the Emergency Department on the above date and was hospitalized for further evaluation of their emergent condition. - New Patient This patient is new to me today: No - Critical Care Critical Care patient: No
[2018-11-16] MEDS: WARFARIN NA 2.5 MG TABLET (FP) PO SCH (18:25)
[2018-11-16] MEDS: MONTELUKAST NA 10 MG TABLET PO SCH (21:20)
[2018-11-16] MEDS: AZELASTINE HCL NS SCH (22:22)
[2018-11-16] MEDS ORDERED: PT OWN MED DRAWER 7, Y5N ONE (22:25)
[2018-11-17] MEDS: DOCUSATE SODIUM 100 MG CAPSULE (FP) PO SCH ×3 (06:10→22:01)
[2018-11-17] MEDS: LEVOTHYROXINE NA 100 MCG TABLET (FP) PO SCH (06:10)
[2018-11-17] MEDS: CARVEDILOL 3.125 MG TABLET (FP) PO SCH ×2 (09:05→22:02)
[2018-11-17] MEDS: hydrALAZINE HCL 10 MG TABLET PO SCH ×2 (09:05→22:02)
[2018-11-17] MEDS: FUROSEMIDE 40 MG TABLET (FP) PO SCH (09:05)
[2018-11-17] MEDS: LORATADINE 10 MG TABLET PO SCH (09:05)
[2018-11-17] MEDS: RANITIDINE HCL 150 MG TABLET (FP) PO SCH ×2 (09:05→22:02)
[2018-11-17] MEDS: TAMSULOSIN HCL 0.4 MG CAP PO SCH (09:06)
[2018-11-17] MEDS: predniSONE 10 MG TABLET (UD) PO SCH (09:06)
[2018-11-17] MEDS: BUDESONIDE/FORMETEROL FUMARATE 160/4.5 mcg INHALER IH SCH ×2 (09:08→22:01)
[2018-11-17] MEDS: POLYETHYLENE GLYCOL 3350 119 GM BTL PO SCH (09:14)
[2018-11-17] MEDS: SENNOSIDES 8.6MG TABLET (FP) PO SCH ×2 (09:14→22:01)
[2018-11-17] MEDS: AZELASTINE HCL NS SCH ×2 (09:19→22:02)
--- NOTE | 2018-11-17 14:23 | PN ---
Progress Note (short form) - Note Progress Note: ORTHOPEDIC SURGERY PROGRESS NOTE Department of Orthopedic Surgery SUBJECTIVE No acute events overnight. No complaints currently. Denies chest pain, shortness of breath, or calf pain. No nausea or vomiting. Tolerating oral intake. Pain controlled, resting comfortably in bed. Mild improvement in quadriceps strength, but still weak. PHYSICAL EXAMINATION Right Lower Extremity: Skin warm, dry, and intact; no lesions, rashes or ulcers noted. Muscle mass equal and symmetric to contralateral side. No atrophy noted. No masses or effusions noted. Tender to palpation at lateral joint line knee; nontender throughout rest of extremity. No cords or calf tenderness Mild calf/ankle edema. Limited passive ROM, mild pain at extremes of flexion/ extension secondary to arthritis. He can flex his knee, but not extend it on his own. Joints stable with no pathologic laxity. EHL/TA/GS motor intact; SILT distally; 2+ DP pulses; Cap refill brisk. Tone and reflexes normal distally. He has a significant quadriceps weakness 2/5, and 4+/5 hamstring strength. No signs of septic joint. Mild effusion. Left Lower Extremity: Skin warm, dry, and intact; no lesions, rashes or ulcers noted. Muscle mass equal and symmetric to contralateral side. No atrophy noted. No masses or effusions noted. Tender to palpation at medial joint line knee; nontender throughout rest of extremity. No cords or calf tenderness Mild calf/ankle edema. Limited passive ROM, mild pain at extremes of flexion/ extension secondary to arthritis. ROM is from 15-90 without pain. Joints stable with no pathologic laxity. EHL/TA/GS motor intact; SILT distally; 2+ DP pulses; Cap refill brisk. Tone and reflexes normal distally. He has a significant quadriceps weakness 2/5, and 4+/5 hamstring strength. No signs of septic joint. No Saddle parasthesias. DVT: No calf ttp b/l LE, no pain with passive stretch of the toes and foot bilaterally. Intake & Output 11/14/18 11/15/18 11/16/18 23:59 23:59 23:59 Intake Total 490 750 150 Balance 490 750 150 Intake: IV 0 SL 0 Oral 490 750 150 Other: Voiding Method Incontinent Incontinent Diaper # Unmeasured Voids Void 2 2 2 Bowel Movement Yes Yes No # Bowel Movements 1 Weight 212 lb Height 5 ft 7 in Body Mass Index (BMI) 33.2 Active Medications Generic Name Dose Route Start Last Admin Trade Name Freq PRN Reason Stop Dose Admin Acetaminophen 650 mg 11/12/18 21:27 Tylenol - PO Q4H PRN FEVER Budesonide/Formoterol Fumarate 2 puff 11/13/18 10:00 11/16/18 09:01 Symbicort 160/4.5mcg - IH 2 puff BID [facility] Administration Carvedilol 3.125 mg 11/13/18 10:00 11/16/18 09:01 Coreg - PO 3.125 mg BID [facility] Administration Docusate Sodium 100 mg 11/12/18 22:00 11/16/18 06:01 Colace - PO 100 mg TID [facility] Administration Furosemide 40 mg 11/14/18 10:00 11/16/18 09:01 Lasix - PO 40 mg DAILY [facility] Administration Hydralazine HCl 10 mg 11/16/18 10:00 11/16/18 10:08 Apresoline - PO Not Given BID [facility] Levothyroxine Sodium 100 mcg 11/13/18 07:00 11/16/18 06:01 Synthroid - PO 100 mcg DAILY@0700 [facility] Administration Loratadine 10 mg 11/13/18 10:00 11/16/18 09:01 Claritin - PO 10 mg DAILY [facility] Administration Montelukast Sodium 10 mg 11/13/18 22:00 11/15/18 21:06 Singulair - PO 10 mg HS [facility] Administration Non-Formulary Medication 137 mcg 11/13/18 10:00 Azelastine Hcl [Azelastine Hcl] PO DAILY [facility] Polyethylene Glycol 17 gm 11/17/18 10:00 Miralax (For Daily Use) - PO DAILY [facility] Prednisone 30 mg 11/15/18 08:00 11/16/18 08:52 Deltasone - PO 11/17/18 08:01 30 mg DAILY@0800 [facility] Administration Prednisone 10 mg 11/18/18 08:00 Deltasone - PO 11/20/18 08:01 DAILY@0800 [facility] Prednisone 5 mg 11/21/18 08:00 Deltasone - PO 11/23/18 08:01 DAILY@0800 [facility] Ranitidine HCl 150 mg 11/13/18 10:00 11/16/18 09:01 Zantac - PO 150 mg BID [facility] Administration Senna 1 tab 11/12/18 22:00 11/16/18 09:04 Senna - PO Not Given BID [facility] Tamsulosin HCl 0.4 mg 11/13/18 08:30 11/16/18 08:53 Flomax - PO 0.4 mg DAILY@0830 [facility] Administration Warfarin Sodium 5 mg 11/13/18 18:00 11/15/18 17:29 Coumadin - PO 5 mg Q2D@1800 [facility] Administration Warfarin Sodium 2.5 mg 11/14/18 18:00 11/14/18 17:34 Coumadin - PO 2.5 mg Q2D@1800 [facility] Administration Vital Signs (last) Temp Pulse Resp BP Pulse Ox 97.8 F 79 20 104/65 100 11/16/18 13:26 11/16/18 13:26 11/16/18 13:26 11/16/18 13:26 11/15/18 21:00 Laboratory (coagulation) PT with INR 23.20 SEC (9.7-13.0) H 11/16/18 07:55 Laboratory 11/15/18 06:00 11/16/18 07:55 ASSESSMENT AND PLAN Mr. Brown is a 78 year old male presenting with bilateral knee osteoarthritis - no signs of septic joint. Negative gram stain of right knee synovial fluid. We have reviewed the imaging and clinical findings in detail, as well as their potential implications. Plan: - Negative gram stain of right knee synovial fluid; No signs of infection; Culture and crystals not obtained secondary to clotting of rbc's in synovial fluid sample. - Pain Control - DVT prophylaxis - Neurosurgery consult appreciated; Discussed case with Dr. Sandoval - Rheumatology consult appreciated; Discussed case with Dr. Swift. - Physical Therapy for ROM and muscle strengthening of quadriceps and hamstring muscles. WBAT b/l LE - Please have patient follow up in our office in 1-2 weeks after discharged from Rehab: Call [phone] for appointment. All questions were answered. Thank you for involving our team in the care of this patient. . Stu Rojas, DO Orthopedic Surgery
[2018-11-17 15:12] LABS: INR 1.91 (0.83-1.09); PROTHROMBIN TIME (PATIENT) 22.7 SEC (9.7-13.0)
[2018-11-17] MEDS: WARFARIN NA 5 MG TABLET (UD) PO SCH (17:11)
--- NOTE | 2018-11-17 17:29 | PN ---
Progress Note (short form) - Note Progress Note: Subjective: pain in knees, no fever or chills Objective: Vital Signs: Last Vital Signs Temp Pulse Resp BP Pulse Ox 97.8 F 80 20 121/70 94 L 11/17/18 13:09 11/17/18 13:09 11/17/18 13:09 11/17/18 13:09 11/17/18 09:00 Laboratory Results - last 24 hr 11/16/18 11/17/18 15:15 14:45 PT with INR 22.70 H INR 1.91 H Synovial Source Cancelled Synovial WBC Cancelled Synovial RBC Cancelled Synovial Neutrophils Cancelled Synovial Lymphocytes Cancelled Synovial Monocytes Cancelled Synovial Histocytes Cancelled Synovial Plasma Cells Cancelled Synovial LE Cells Cancelled Synovial Macrophages Cancelled Synovial Other Cells Cancelled Synovial Diff Comment Cancelled Synovial Crystals Cancelled Physical Exam: NAD CV: RRR, no MRG lungs: bibasilar fine crackles Abd: less distended soft, NL BS Ext: 2+ edema on feet. no erythema or increased warmth on knees. R knee anterior surgical scar deformities in hand joints ASSESSMENT AND PLAN: 78 y/o man with h/o RA , A fib on AC, COPD, HTN, Hodgkin's lymphoma, systolic heart failure, CKD4, and other medical problems who presented with b/l kne pain and inability to ambulate . 1- B/l Knee pain and effusion. 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 G stain neg. cx pending . unlikely septic joint - tylenol for pain - PT . 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 decrease miralax to daily 3- CKD: Cr at base line - cont lasix - f/u with renal as out pt 4- HTN: cont coreg and decreased dose of hydralazine . 5- A fib: - cont coreg and coumadin. 6-LE edema : continue lasix . card eval as out pt DVT PX : on coumadin dispo : patient was accepted fro rehab, but he and family declined the choice. Now need auth for Sansucci . medically ready for dc . Visit type - Emergency Visit Emergency Visit: Yes ED Registration Date: 11/12/18 Care time: The patient presented to the Emergency Department on the above date and was hospitalized for further evaluation of their emergent condition. - New Patient This patient is new to me today: No - Critical Care Critical Care patient: No
--- NOTE | 2018-11-17 20:32 | PN ---
Progress Note (short form) - Note Progress Note: Patient resting comfortably. Patient reports some increase in Right knee movement after aspiration procedure yesterday. Still no complaints of back pain. Case discussed with Dr. Rojas. No acute Neursurgical intervention indicated/planned. While he has significant Lumbar disease and possible Thoracic spondylosis, his symptom pattern is not typical of these pathologies. Agree with outpatient followup if these symptoms persist or progress. No Neurosurgical contraindication to discharge for Rehab. Patient requests referral to [facility].
[2018-11-17] MEDS: MONTELUKAST NA 10 MG TABLET PO SCH (22:01)
[2018-11-18] MEDS: DOCUSATE SODIUM 100 MG CAPSULE (FP) PO SCH ×3 (06:08→21:42)
[2018-11-18] MEDS: LEVOTHYROXINE NA 100 MCG TABLET (FP) PO SCH (06:08)
[2018-11-18 06:57] LABS: INR 1.85 (0.83-1.09)
[2018-11-18] MEDS: FUROSEMIDE 40 MG TABLET (FP) PO SCH (09:01)
[2018-11-18] MEDS: BUDESONIDE/FORMETEROL FUMARATE 160/4.5 mcg INHALER IH SCH ×2 (09:01→21:41)
[2018-11-18] MEDS: AZELASTINE HCL NS SCH ×2 (09:01→21:42)
[2018-11-18] MEDS: hydrALAZINE HCL 10 MG TABLET PO SCH ×2 (09:02→21:42)
[2018-11-18] MEDS: RANITIDINE HCL 150 MG TABLET (FP) PO SCH ×2 (09:02→21:42)
[2018-11-18] MEDS: predniSONE 10 MG TABLET (UD) PO SCH (09:02)
[2018-11-18] MEDS: LORATADINE 10 MG TABLET PO SCH (09:02)
[2018-11-18] MEDS: CARVEDILOL 3.125 MG TABLET (FP) PO SCH ×2 (09:02→21:42)
[2018-11-18] MEDS: SENNOSIDES 8.6MG TABLET (FP) PO SCH ×2 (09:02→21:42)
[2018-11-18] MEDS: TAMSULOSIN HCL 0.4 MG CAP PO SCH (09:02)
[2018-11-18] MEDS: POLYETHYLENE GLYCOL 3350 119 GM BTL PO SCH (09:04)
--- NOTE | 2018-11-18 13:14 | PN ---
Physical Exam: SUBJECTIVE: Patient seen and examined at bedside this morning. No acute events overnight. Patient has no new complaints. Denies fever, chills, headache, weakness, numbness, chest pain, SOB, abdominal pain, diarrhea, urinary symptoms. OBJECTIVE: Vital Signs Period Temp Pulse Resp BP Sys/Gomez Pulse Ox Last 24 Hr 97.4 F-98.3 F 59-88 18-20 109-120/67-77 95-96 GENERAL: The patient is awake, alert, and fully oriented, in no acute distress. NECK: Trachea midline, full range of motion, supple. LUNGS: clear breath sounds, good air entry. HEART: Regular rate and rhythm, S1, S2 without murmur, rub or gallop. ABDOMEN: Soft, nontender, nondistended, normoactive bowel sounds, no guarding, no rebound, no hepatosplenomegaly, no masses. EXTREMITIES: 2+ pulses, warm, well-perfused, no edema. +2 peripheral edema on both feet. MSK: b/l UE: motor strength 5/5, sensation intact, ROM intact, +swan neck deformity on 3rd and 4th digits of left hand. +ulnar deformity b/l hands. LLE: 3 /5 hip flexion, 4/5 knee flexion, extension limited by pain, sensation intact. RLE: 3/5 hip flexion, 4/5 knee flexion, extension, plantar flexion, dorsiflexion limited by pain. NEUROLOGICAL: Cranial nerves II through XII grossly intact. Normal speech, gait not observed. PSYCH: Normal mood, normal affect. SKIN: Warm, dry, normal turgor, no rashes or lesions noted Laboratory Results - last 24 hr 11/17/18 11/18/18 14:45 05:15 PT with INR 22.70 H 22.00 H INR 1.91 H 1.85 H Active Medications Generic Name Dose Route Start Last Admin Trade Name Freq PRN Reason Stop Dose Admin Acetaminophen 650 mg 11/12/18 21:27 Tylenol - PO Q4H PRN FEVER Budesonide/Formoterol Fumarate 2 puff 11/13/18 10:00 11/18/18 09:01 Symbicort 160/4.5mcg - IH 2 puff BID MIGUELITO Administration Carvedilol 3.125 mg 11/13/18 10:00 11/18/18 09:02 Coreg - PO 3.125 mg BID MIGUELITO Administration Docusate Sodium 100 mg 11/12/18 22:00 11/18/18 06:08 Colace - PO 100 mg TID MIGUELITO Administration Furosemide 40 mg 11/14/18 10:00 11/18/18 09:01 Lasix - PO 40 mg DAILY MIGUELITO Administration Hydralazine HCl 10 mg 11/16/18 10:00 11/18/18 09:02 Apresoline - PO 10 mg BID MIGUELITO Administration Levothyroxine Sodium 100 mcg 11/13/18 07:00 11/18/18 06:08 Synthroid - PO 100 mcg DAILY@0700 MIGUELITO Administration Loratadine 10 mg 11/13/18 10:00 11/18/18 09:02 Claritin - PO 10 mg DAILY MIGUELITO Administration Montelukast Sodium 10 mg 11/13/18 22:00 11/17/18 22:01 Singulair - PO 10 mg HS MIGUELITO Administration Patient's Own 0 mcg 11/16/18 22:00 11/18/18 09:01 Medication (Non- NS 2 mcg Formulary) ( BID MIGUELITO Administration Azelastine Hcl 0.1%] 137 Mcg) Polyethylene Glycol 17 gm 11/17/18 10:00 11/18/18 09:04 Miralax (For Daily Use) - PO Not Given DAILY [facility] Prednisone 10 mg 11/18/18 08:00 11/18/18 09:02 Deltasone - PO 11/20/18 08:01 10 mg DAILY@0800 MIGUELITO Administration Prednisone 5 mg 11/21/18 08:00 Deltasone - PO 11/23/18 08:01 DAILY@0800 [facility] Ranitidine HCl 150 mg 11/13/18 10:00 11/18/18 09:02 Zantac - PO 150 mg BID MIGUELITO Administration Senna 1 tab 11/12/18 22:00 11/18/18 09:02 Senna - PO 1 tab BID MIGUELITO Administration Tamsulosin HCl 0.4 mg 11/13/18 08:30 11/18/18 09:02 Flomax - PO 0.4 mg DAILY@0830 MIGUELITO Administration Warfarin Sodium 5 mg 11/13/18 18:00 11/17/18 17:11 Coumadin - PO 5 mg Q2D@1800 [facility] Administration Warfarin Sodium 2.5 mg 11/14/18 18:00 11/16/18 18:25 Coumadin - PO 2.5 mg Q2D@1800 [facility] Administration ASSESSMENT/PLAN: Patient is a 78 year old male with past medical history of ILD, CKD stage 4, Large cell lymphoma, systolic CHF (NYHA class 2), paroxysmal atrial fibrillation (on coumadin), BPH and HTN, presented with bilateral knee pain for about 3 months, associated with difficulty ambulating since 1 week. #Bilateral knee pain: possible osteoarthritis vs rheumatoid arthritis vs gout ( Uric acid 11.2) -Left knee xray (05/2017):Medial compartment and patellofemoral joint space narrowing with small periarticular osteophytes. Small suprapaterllar effusion. Vascular calcifications. -Left knee xray: arthritic changes with joint effusion but no sign of fracture or subluxation -Right knee xray: small joint effusion, anterior soft tissue calcifications and possible old osteophyte fracture of the superior aspect of the patella. Arthritic changes are noted.An acute process is not seen. -ESR, CRP, SENAIT, RF -Lyme titers -Physical therapy -Tylenol PRN for pain -Ortho (Dr. Rojas) consulted. Recommendations appreciated. -Right knee aspiration done. Synovial fluid sent for culture, gram stain, cell count and crystals. -Left knee has minimal fluid. No aspiration done. -Rheumatology (Dr. Swift) consulted. Recommendations appreciated. -Rule out pseudogout, rule out gouty arthritis -Patient on warfarin and has CKD. Not a candidate for NSAIDs or Colchicine -Start Prednisone 30mg/day for 3 days with a tapering schedule. -Xrays of knees weight bearing. -[place] neck deformity likely from previous trauma/fracture, unlikely RA or any inflammatory arthritis. #Bilateral LE weakness: likely 2/2 multilevel lumbar stenosis -Lumbar spine MRI: Levoscoliosis with diffuse discogenic disease and spondylosis throughout the lumbar spine. Grade one-2 anterior listhesis of L5 on S1 with bilateral spondylolysis resulting in severe left foraminal stenosis. Severe left foraminal stenosis at L4-L5. Severe right foraminal stenosis at L3- L4. moderate right foraminal stenosis at L2-3. -Neurosurgery () consulted. Recommendations appreciated. -No acute neurosurgical intervention indicated/planned. While patient has significant lumbar disease, his symptom pattern is not typical. -Outpatient follow-up if symptoms persist or progress. #CKD -BUN/Cr at baseline -Renal/kidney US done -Avoid nephrotoxic agents such as NSAIDs, aminoglycosides, contrast. #Paroxysmal atrial fibrillation -Continue Coreg 3.125mg daily. -Continue Coumadin as dosed by primary care doctor. Coumadin 5mg q2d, alternating with 2.5mg q2d. #Constipation: likely 2/2 fecal impaction: resolved -Abdominal xray done: nonspecific, nonobstruction -[place]: +firm stool on anal vault, no masses, no hemorrhoids appreciated. +blood- tinged stool noted. -Stool occult blood -negative -Fecal disimpaction done. Patient started to have BM -Continue Senna, colace and miralax PRN #systolic CHF: not in exacerbation -Continue Lasix 40mg daily. #HTN: controlled -Continue home Hydralazine 10mg TID -Coreg 3.125 mg BID -Will continue to monitor BP #FEN -Not on any standing fluids. -Electrolytes wnl, routine bmp monitoring -Sodium controlled diet. #Prophylaxis -On coumadin ASDIR #Disposition -full code -admit to med-surg -Pending SNF facility,. Patient requests for [facility] or [facility] Visit type - Emergency Visit Emergency Visit: Yes ED Registration Date: 11/12/18 Care time: The patient presented to the Emergency Department on the above date and was hospitalized for further evaluation of their emergent condition. - New Patient This patient is new to me today: No - Critical Care Critical Care patient: No
[2018-11-18] MEDS: WARFARIN NA 2.5 MG TABLET (FP) PO SCH (17:04)
--- NOTE | 2018-11-18 17:43 | PN ---
Progress Note (short form) - Note Progress Note: Patient with progressive improvement in leg strength with no complaints of pain. Agree with plans for Rehabilitation.
--- NOTE | 2018-11-18 20:00 | PN ---
Teaching Attending Note Name of Resident: Rosario Martin ATTENDING PHYSICIAN STATEMENT I saw and evaluated the patient. I reviewed the resident's note and discussed the case with the resident. I agree with the resident's findings and plan as documented. SUBJECTIVE: Patient is feeling better but unable to ambulate. OBJECTIVE: Vital Signs Temperature 98.1 F 11/18/18 17:34 Pulse Rate 81 11/18/18 17:34 Respiratory Rate 20 11/18/18 17:34 Blood Pressure 113/73 11/18/18 17:34 O2 Sat by Pulse Oximetry (%) 95 11/18/18 09:00 GENERAL: The patient is awake, alert, and fully oriented, in no acute distress. NECK: Trachea midline, full range of motion, supple. LUNGS: clear breath sounds, good air entry. HEART: Regular rate and rhythm, S1, S2 without murmur, rub or gallop. ABDOMEN: Soft, nontender, nondistended, normoactive bowel sounds, no guarding, no rebound, no hepatosplenomegaly, no masses. EXTREMITIES: 2+ pulses, warm, well-perfused, no edema. +2 peripheral edema on both feet, NEUROLOGICAL: Cranial nerves II through XII grossly intact. Normal speech, gait not observed. PSYCH: Normal mood, normal affect. SKIN: Warm, dry, normal turgor, no rashes or lesions noted ABCD WBC 8.7 K/mm3 (4.0-10.0) 11/15/18 06:00 RBC 3.89 M/mm3 (4.00-5.60) L 11/15/18 06:00 Hgb 11.7 GM/dL (11.7-16.9) 11/15/18 06:00 Hct 36.6 % (35.4-49) 11/15/18 06:00 MCV 94.2 fl (80-96) 11/15/18 06:00 MCHC 31.9 g/dl (32.0-35.9) L 11/15/18 06:00 RDW 14.5 % (11.9-15.9) 11/15/18 06:00 Plt Count 457 K/MM3 (134-434) H 11/15/18 06:00 MPV 7.0 fl (7.5-11.1) L 11/15/18 06:00 CMP Sodium 141 mmol/L (136-145) 11/16/18 07:55 Potassium 4.0 mmol/L (3.5-5.1) 11/16/18 07:55 Chloride 109 mmol/L (98-107) H 11/16/18 07:55 Carbon Dioxide 25 mmol/L (21-32) 11/16/18 07:55 Anion Gap 8 MMOL/L (8-16) 11/16/18 07:55 BUN 40 mg/dL (7-18) H 11/16/18 07:55 Creatinine 2.0 mg/dL (0.55-1.3) H 11/16/18 07:55 Creat Clearance w eGFR 32.39 (>60) 11/16/18 07:55 Random Glucose 87 mg/dL (74-106) 11/16/18 07:55 Calcium 7.9 mg/dL (8.5-10.1) L 11/16/18 07:55 Total Bilirubin 0.5 mg/dL (0.2-1) 11/15/18 06:00 AST 25 U/L (15-37) 11/15/18 06:00 ALT 30 U/L (13-61) 11/15/18 06:00 Alkaline Phosphatase 82 U/L (45-117) 11/15/18 06:00 Total Protein 6.1 g/dl (6.4-8.2) L 11/15/18 06:00 Albumin 2.4 g/dl (3.4-5.0) L 11/15/18 06:00 CARDIAC ENZYMES Creatine Kinase 89 IU/L (26-308) 11/12/18 16:57 Current Medications Generic Name Dose Route Start Last Admin Trade Name Freq PRN Reason Stop Dose Admin Acetaminophen 650 mg 11/12/18 21:27 Tylenol - PO Q4H PRN FEVER Budesonide/Formoterol Fumarate 2 puff 11/13/18 10:00 11/18/18 09:01 Symbicort 160/4.5mcg - IH 2 puff BID MIGUELITO Administration Carvedilol 3.125 mg 11/13/18 10:00 11/18/18 09:02 Coreg - PO 3.125 mg BID MIGUELITO Administration Docusate Sodium 100 mg 11/12/18 22:00 11/18/18 13:44 Colace - PO 100 mg TID MIGUELITO Administration Furosemide 40 mg 11/14/18 10:00 11/18/18 09:01 Lasix - PO 40 mg DAILY MIGUELITO Administration Hydralazine HCl 10 mg 11/16/18 10:00 11/18/18 09:02 Apresoline - PO 10 mg BID MIGUELITO Administration Levothyroxine Sodium 100 mcg 11/13/18 07:00 11/18/18 06:08 Synthroid - PO 100 mcg DAILY@0700 MIGUELITO Administration Loratadine 10 mg 11/13/18 10:00 11/18/18 09:02 Claritin - PO 10 mg DAILY MIGUELITO Administration Montelukast Sodium 10 mg 11/13/18 22:00 11/17/18 22:01 Singulair - PO 10 mg HS MIGUELITO Administration Patient's Own 0 mcg 11/16/18 22:00 11/18/18 09:01 Medication (Non- NS 2 mcg Formulary) ( BID MIGUELITO Administration Azelastine Hcl 0.1%] 137 Mcg) Polyethylene Glycol 17 gm 11/17/18 10:00 11/18/18 09:04 Miralax (For Daily Use) - PO Not Given DAILY [facility] Prednisone 10 mg 11/18/18 08:00 11/18/18 09:02 Deltasone - PO 11/20/18 08:01 10 mg DAILY@0800 MIGUELITO Administration Prednisone 5 mg 11/21/18 08:00 Deltasone - PO 11/23/18 08:01 DAILY@0800 [facility] Ranitidine HCl 150 mg 11/13/18 10:00 11/18/18 09:02 Zantac - PO 150 mg BID MIGUELITO Administration Senna 1 tab 11/12/18 22:00 11/18/18 09:02 Senna - PO 1 tab BID MIGUELITO Administration Tamsulosin HCl 0.4 mg 11/13/18 08:30 11/18/18 09:02 Flomax - PO 0.4 mg DAILY@0830 MIGUELITO Administration Warfarin Sodium 5 mg 11/13/18 18:00 11/17/18 17:11 Coumadin - PO 5 mg Q2D@1800 MIGUELITO Administration Warfarin Sodium 2.5 mg 11/14/18 18:00 11/18/18 17:04 Coumadin - PO 2.5 mg Q2D@1800 MIGUELITO Administration Home Medications Medication Instructions Recorded Azelastine HCl 137 mcg PO DAILY 11/12/18 Budesonide/Formeterol Fumarate 2 puff IH DAILY 11/12/18 [SYMBICORT 160/4.5mcg -] Famotidine [Pepcid] 40 mg PO BID 11/12/18 Levothyroxine [Synthroid -] 100 mcg PO DAILY 11/12/18 Montelukast Na [Singulair -] 10 mg PO HS 11/12/18 Tamsulosin HCl 0.4 mg PO DAILY 11/12/18 Warfarin Na [Coumadin -] 2.5 mg PO Q48H 11/12/18 Warfarin Na [Coumadin -] 5 mg PO Q48H 11/12/18 Carvedilol [Coreg -] 3.125 mg PO BID tablet 11/18/18 Docusate Sodium [Colace -] 100 mg PO TID capsule 11/18/18 Furosemide [Lasix -] 40 mg PO DAILY tablet 11/18/18 Loratadine [Claritin -] 10 mg PO DAILY tablet 11/18/18 Polyethylene Glycol 3350 [Miralax 17 gm PO DAILY bottle 11/18/18 119 gm Btl -] Sennosides [Senna -] 1 tab PO BID tablet 11/18/18 hydrALAZINE HCL [Apresoline -] 10 mg PO BID #60 tablet 11/18/18 predniSONE [Deltasone -] 5 mg PO DAILY@0800 #3 tablet 11/18/18 predniSONE [Deltasone -] 10 mg PO DAILY@0800 #2 tablet 11/18/18 Microbiology 11/16/18 15:15 Synovial Fluid - Knee Gram Stain - Final 11/16/18 15:15 Synovial Fluid - Knee Body Fluid Culture - Final NO GROWTH OF AEROBIC ORGANISMS AFTER 48 HOURS INCUBATION 11/16/18 15:15 Synovial Fluid - Knee Anaerobic Culture - Final NO ANAEROBES WERE ISOLATED ASSESSMENT AND PLAN: 78 y/o man with h/o RA , A fib on AC, COPD, HTN, Hodgkin's lymphoma, systolic heart failure, CKD4, and other medical problems who presented with b/l kne pain and inability to ambulate . # B/l Knee pain and effusion. 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 continue to taper the dose of steroid. 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 decrease miralax to daily # CKD: Cr at base line cont lasix , f/u with renal as out pt # HTN: cont coreg and decreased dose of hydralazine . # A fib: cont coreg and coumadin. #LE edema : continue lasix . card eval as an out pt DVT PX : on coumadin dispo : patient was accepted fro rehab, but he declined the choice. Now need auth for Sansucci . medically ready for dc .
[2018-11-18] MEDS: MONTELUKAST NA 10 MG TABLET PO SCH (21:42)
[2018-11-19] MEDS: DOCUSATE SODIUM 100 MG CAPSULE (FP) PO SCH ×2 (05:59→13:57)
[2018-11-19] MEDS: LEVOTHYROXINE NA 100 MCG TABLET (FP) PO SCH (06:00)
[2018-11-19 06:39] LABS: INR 1.68 (0.83-1.09); PROTHROMBIN TIME (PATIENT) 19.9 SEC (9.7-13.0)
[2018-11-19] MEDS: LORATADINE 10 MG TABLET PO SCH (10:47)
[2018-11-19] MEDS: FUROSEMIDE 40 MG TABLET (FP) PO SCH (10:47)
[2018-11-19] MEDS: predniSONE 10 MG TABLET (UD) PO SCH (10:47)
[2018-11-19] MEDS: SENNOSIDES 8.6MG TABLET (FP) PO SCH (10:47)
[2018-11-19] MEDS: CARVEDILOL 3.125 MG TABLET (FP) PO SCH (10:47)
[2018-11-19] MEDS: TAMSULOSIN HCL 0.4 MG CAP PO SCH (10:47)
[2018-11-19] MEDS: RANITIDINE HCL 150 MG TABLET (FP) PO SCH (10:47)
[2018-11-19] MEDS: hydrALAZINE HCL 10 MG TABLET PO SCH (10:47)
[2018-11-19] MEDS: AZELASTINE HCL NS SCH (10:48)
[2018-11-19] MEDS: BUDESONIDE/FORMETEROL FUMARATE 160/4.5 mcg INHALER IH SCH (10:49)
[2018-11-19] MEDS: POLYETHYLENE GLYCOL 3350 119 GM BTL PO SCH (10:50)
[2018-11-19 15:07] VITALS: BP 135/84; PULSE 76; TEMP 97.8
--- NOTE | 2018-11-19 16:44 | DS ---
Physical Exam: SUBJECTIVE: Patient seen and examined at bedside this morning. No acute events overnight. Patient has no new complaints. OBJECTIVE: Vital Signs Period Temp Pulse Resp BP Sys/Gomez Pulse Ox Last 24 Hr 97.7 F-98.3 F 66-83 20-22 107-135/66-84 96-96 PHYSICAL EXAM GENERAL: The patient is awake, alert, and fully oriented, in no acute distress. NECK: Trachea midline, full range of motion, supple. LUNGS: clear breath sounds, good air entry. HEART: Regular rate and rhythm, S1, S2 without murmur, rub or gallop. ABDOMEN: Soft, nontender, nondistended, normoactive bowel sounds, no guarding, no rebound, no hepatosplenomegaly, no masses. EXTREMITIES: 2+ pulses, warm, well-perfused, no edema. +2 peripheral edema on both feet. MSK: b/l UE: motor strength 5/5, sensation intact, ROM intact, +swan neck deformity on 3rd and 4th digits of left hand. +ulnar deformity b/l hands. LLE: 3 /5 hip flexion, 4/5 knee flexion, extension limited by pain, sensation intact. RLE: 3/5 hip flexion, 4/5 knee flexion, extension, plantar flexion, dorsiflexion limited by pain. NEUROLOGICAL: Cranial nerves II through XII grossly intact. Normal speech, gait not observed. PSYCH: Normal mood, normal affect. SKIN: Warm, dry, normal turgor, no rashes or lesions noted LABS Laboratory Results - last 24 hr 11/18/18 11/19/18 05:15 05:00 PT with INR 19.90 H INR 1.68 H Lyme Screen IgG & IgM <0.91 -Left knee xray (05/2017):Medial compartment and patellofemoral joint space narrowing with small periarticular osteophytes. Small suprapaterllar effusion. Vascular calcifications. -Left knee xray: arthritic changes with joint effusion but no sign of fracture or subluxation -Right knee xray: small joint effusion, anterior soft tissue calcifications and possible old osteophyte fracture of the superior aspect of the patella. Arthritic changes are noted.An acute process is not seen. -Lumbar spine MRI: Levoscoliosis with diffuse discogenic disease and spondylosis throughout the lumbar spine. Grade one-2 anterior listhesis of L5 on S1 with bilateral spondylolysis resulting in severe left foraminal stenosis. Severe left foraminal stenosis at L4-L5. Severe right foraminal stenosis at L3- L4. moderate right foraminal stenosis at L2-3. -Abdominal xray: nonspecific, nonobstruction HOSPITAL COURSE: Date of Admission:11/12/18 Date of Discharge: 11/19/18 Patient is a 78 year old male with past medical history of ILD, CKD stage 4, Large cell lymphoma, systolic CHF (NYHA class 2), paroxysmal atrial fibrillation (on coumadin), BPH and HTN, presented with bilateral knee pain for about 3 months, associated with difficulty ambulating for 1 week. Xrays of the knee and Lumbar spine MRI done. Ortho, rheumatology and neurosurgery consulted. Synovial fluid aspiration of the right knee was done. No surgical interventions were recommended. Patient was also noted to have constipation and distended abdomen. Xray of the abdomen showed nonobstruction of the bowels. Fecal disimpaction was done, and patient started to have normal bowel movements. Patient was discharged to [place] to continue with rehab. 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 This was likely due to arthritis. While you were here, you had a joint tap done to remove fluid from your right knee. You were seen by a dividend deposit entry clerk (joint doctor) and orthopedic surgeon. Medications You may continue your home medications, including home dose Lasix 40mg daily. 1) However please take 3.125mg (1 pill) twice a day of coreg (carvedilol). ( Your BP medicine) 2) Your BP medication, Hydralazine dose was changed to 10mg twice a day. Instead of three times a day. Please also continue your prednisone taper as follows. Do not stop the steroids abruptly. -Prednisone 10mg for one more day starting tomorrow (11/20) -Then 5mg for the following three days (11/21, 11/22, 11/23) Follow-ups Please follow up with the following doctors: -Your primary care doctor - 1 week. To discuss your visit. -Technical Editor, Dr. Swift who saw you in the hospital. 1 week -Neurosurgeon, Dr. Sandoval who saw you in the hospital. 1 week. You may need spine surgery, as was discussed -A fsr (heart doctor), Dr. Oswald- to discuss your lower leg swelling. 1 week -Aircraft Engine Technician (kidney doctor), Dr. Marsh 1 week Additional instructions If you develop fever, shortness of breath, chest pain, or feel as if you will pass out please go to the hospital. Referrals: Salomon Sandoval MD, [facility] [Staff Physician] - 1 Week Robby Swift MD [Staff Physician] - 1 Week Mark Oswald MD [Staff Physician] - 1 Week Bartolo Marsh MD [Staff Physician] - 1 Week Alexi Quijano [Primary Care Provider] - 1 Week Disposition: [facility] FACILITY - Home Medications Comprehensive Discharge Medication List: Ambulatory Orders Azelastine HCl 137 mcg PO DAILY 11/12/18 Budesonide/Formeterol Fumarate [SYMBICORT 160/4.5mcg -] 2 puff IH DAILY Famotidine [Pepcid] 40 mg PO BID 11/12/18 Levothyroxine [Synthroid -] 100 mcg PO DAILY 11/12/18 Montelukast Na [Singulair -] 10 mg PO HS 11/12/18 Tamsulosin HCl 0.4 mg PO DAILY 11/12/18 Warfarin Na [Coumadin -] 2.5 mg PO Q48H 11/12/18 Warfarin Na [Coumadin -] 5 mg PO Q48H 11/12/18 Carvedilol [Coreg -] 3.125 mg PO BID tablet 11/18/18 Docusate Sodium [Colace -] 100 mg PO TID capsule 11/18/18 Furosemide [Lasix -] 40 mg PO DAILY tablet 11/18/18 Loratadine [Claritin -] 10 mg PO DAILY tablet 11/18/18 Polyethylene Glycol 3350 [Miralax 119 gm Btl -] 17 gm PO DAILY bottle 11/18/18 Sennosides [Senna -] 1 tab PO BID tablet 11/18/18 hydrALAZINE HCL [Apresoline -] 10 mg PO BID #60 tablet 11/18/18 predniSONE [Deltasone -] 5 mg PO DAILY@0800 #3 tablet 11/18/18 Prednisone 10 mg PO ONCE #1 tablet 11/19/18 This patient is new to me today: No Emergency Visit: Yes ED Registration Date: 11/12/18 Care time: The patient presented to the Emergency Department on the above date and was hospitalized for further evaluation of their emergent condition. Critical Care patient: No - Discharge Referral Referred to [facility] Med P.C.: No
--- NOTE | 2018-11-19 16:49 | PN ---
Progress Note (short form) - Note Progress Note: Resting comfortably. No contraindication to discharge to SNF/Rehab from Neurosurgery standpoint.
[2018-11-19] MEDS: WARFARIN NA 5 MG TABLET (UD) PO SCH (17:10)
--- NOTE | 2018-11-19 19:11 | PN ---
Teaching Attending Note Name of Resident: Rosario Martin ATTENDING PHYSICIAN STATEMENT I saw and evaluated the patient. I reviewed the resident's note and discussed the case with the resident. I agree with the resident's findings and plan as documented. SUBJECTIVE: Patient is feeling better with no acute distress. wants to go to rehab. OBJECTIVE: Vital Signs Temperature 97.8 F 11/19/18 15:01 Pulse Rate 76 11/19/18 15:01 Respiratory Rate 22 H 11/19/18 15:01 Blood Pressure 135/84 11/19/18 15:01 O2 Sat by Pulse Oximetry (%) 96 11/19/18 09:00 GENERAL: The patient is awake, alert, and fully oriented, in no acute distress. NECK: Trachea midline, full range of motion, supple. LUNGS: clear breath sounds, good air entry. HEART: Regular rate and rhythm, S1, S2 without murmur, rub or gallop. ABDOMEN: Soft, nontender, nondistended, normoactive bowel sounds, no guarding, no rebound, no hepatosplenomegaly, no masses. EXTREMITIES: 2+ pulses, warm, well-perfused, no edema. +2 peripheral edema on both feet, NEUROLOGICAL: Cranial nerves II through XII grossly intact. Normal speech, gait not observed. PSYCH: Normal mood, normal affect. SKIN: Warm, dry, normal turgor, no rashes or lesions noted CBCD WBC 8.7 K/mm3 (4.0-10.0) 11/15/18 06:00 RBC 3.89 M/mm3 (4.00-5.60) L 11/15/18 06:00 Hgb 11.7 GM/dL (11.7-16.9) 11/15/18 06:00 Hct 36.6 % (35.4-49) 11/15/18 06:00 MCV 94.2 fl (80-96) 11/15/18 06:00 MCHC 31.9 g/dl (32.0-35.9) L 11/15/18 06:00 RDW 14.5 % (11.9-15.9) 11/15/18 06:00 Plt Count 457 K/MM3 (134-434) H 11/15/18 06:00 MPV 7.0 fl (7.5-11.1) L 11/15/18 06:00 CMP Sodium 141 mmol/L (136-145) 11/16/18 07:55 Potassium 4.0 mmol/L (3.5-5.1) 11/16/18 07:55 Chloride 109 mmol/L (98-107) H 11/16/18 07:55 Carbon Dioxide 25 mmol/L (21-32) 11/16/18 07:55 Anion Gap 8 MMOL/L (8-16) 11/16/18 07:55 BUN 40 mg/dL (7-18) H 11/16/18 07:55 Creatinine 2.0 mg/dL (0.55-1.3) H 11/16/18 07:55 Creat Clearance w eGFR 32.39 (>60) 11/16/18 07:55 Random Glucose 87 mg/dL (74-106) 11/16/18 07:55 Calcium 7.9 mg/dL (8.5-10.1) L 11/16/18 07:55 Total Bilirubin 0.5 mg/dL (0.2-1) 11/15/18 06:00 AST 25 U/L (15-37) 11/15/18 06:00 ALT 30 U/L (13-61) 11/15/18 06:00 Alkaline Phosphatase 82 U/L (45-117) 11/15/18 06:00 Total Protein 6.1 g/dl (6.4-8.2) L 11/15/18 06:00 Albumin 2.4 g/dl (3.4-5.0) L 11/15/18 06:00 CARDIAC ENZYMES Creatine Kinase 89 IU/L (26-308) 11/12/18 16:57 Home Medications Medication Instructions Recorded Azelastine HCl 137 mcg PO DAILY 11/12/18 Budesonide/Formeterol Fumarate 2 puff IH DAILY 11/12/18 [SYMBICORT 160/4.5mcg -] Famotidine [Pepcid] 40 mg PO BID 11/12/18 Levothyroxine [Synthroid -] 100 mcg PO DAILY 11/12/18 Montelukast Na [Singulair -] 10 mg PO HS 11/12/18 Tamsulosin HCl 0.4 mg PO DAILY 11/12/18 Warfarin Na [Coumadin -] 2.5 mg PO Q48H 11/12/18 Warfarin Na [Coumadin -] 5 mg PO Q48H 11/12/18 Carvedilol [Coreg -] 3.125 mg PO BID tablet 11/18/18 Docusate Sodium [Colace -] 100 mg PO TID capsule 11/18/18 Furosemide [Lasix -] 40 mg PO DAILY tablet 11/18/18 Loratadine [Claritin -] 10 mg PO DAILY tablet 11/18/18 Polyethylene Glycol 3350 [Miralax 17 gm PO DAILY bottle 11/18/18 119 gm Btl -] Sennosides [Senna -] 1 tab PO BID tablet 11/18/18 hydrALAZINE HCL [Apresoline -] 10 mg PO BID #60 tablet 11/18/18 predniSONE [Deltasone -] 5 mg PO DAILY@0800 #3 tablet 11/18/18 Prednisone 10 mg PO ONCE #1 tablet 11/19/18 ASSESSMENT AND PLAN: 78 y/o man with h/o RA , A fib on AC, COPD, HTN, Hodgkin's lymphoma, systolic heart failure, CKD4, and other medical problems who presented with b/l kne pain and inability to ambulate . # B/l Knee pain and effusion. 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 # Acute Constipation: cont bowel regimen . decrease miralax to daily # CKD: Cr at base line cont lasix , f/u with renal as out pt # HTN: cont coreg and decreased dose of hydralazine . # A fib: cont coreg and coumadin. PT/INR daily #LE edema : continue lasix . card eval as an out pt DVT PX : on coumadin dispo : patient is discharged to rehab. to [facility] .
[2018-11-21] MEDS ORDERED: predniSONE 5 MG TABLET (UD) PO SCH (08:00)
== END 2018-11-19 18:59 | DRG 554 ==
LOC: JER 14:21 → JERBED 20:22 → J7W 11-13 02:48
PROVIDERS: ADMIT Internal Medicine; ATTEND Internal Medicine
PROC: 0S9C3ZX Drainage of Right Knee Joint, Percutaneous Approach, Diagnostic (ICD-10-PCS; principal; 2018-11-16)
DX: M11.861 Other specified crystal arthropathies, right knee (principal); C81.90 Hodgkin lymphoma, unspecified, unspecified site; J84.9 Interstitial pulmonary disease, unspecified; I13.0 Hypertensive heart and chronic kidney disease with heart failure and stage 1 through stage 4 chronic kidney disease, or unspecified chronic kidney disease; N18.4 Chronic kidney disease, stage 4 (severe); I50.20 Unspecified systolic (congestive) heart failure; C83.30 Diffuse large B-cell lymphoma, unspecified site; M25.462 Effusion, left knee; M17.0 Bilateral primary osteoarthritis of knee; K42.9 Umbilical hernia without obstruction or gangrene; M06.9 Rheumatoid arthritis, unspecified; I48.91 Unspecified atrial fibrillation; E03.9 Hypothyroidism, unspecified; N40.0 Benign prostatic hyperplasia without lower urinary tract symptoms; K40.90 Unilateral inguinal hernia, without obstruction or gangrene, not specified as recurrent; M25.562 Pain in left knee; K59.00 Constipation, unspecified; M25.561 Pain in right knee; J44.9 Chronic obstructive pulmonary disease, unspecified; E88.09 Other disorders of plasma-protein metabolism, not elsewhere classified; I10 Essential (primary) hypertension; M25.461 Effusion, right knee; M10.9 Gout, unspecified; M20.032 Swan-neck deformity of left finger(s); R26.9 Unspecified abnormalities of gait and mobility; M47.816 Spondylosis without myelopathy or radiculopathy, lumbar region; M48.061 Spinal stenosis, lumbar region without neurogenic claudication
CPT/HCPCS: 36415; 71045-TC-FY; 72148-TC; 73130-TC-LT-FY; 73130-TC-RT-FY; 73560-TC-LT-FY; 73560-TC-RT-FY; 73562-TC-LT-FY; 73562-TC-RT-FY; 74019-TC-FY; 76775-TC; 80048; 80053; 81003; 82272; 82436; 82550; 82570; 83735; 84100; 84133; 84134; 84300; 84443; 84550; 85025; 85610; 85651; 86038; 86140; 86431; 86618; 87070; 87075; 87205; 93005; 93010; 97116-GP; 99284-25; J0131; J7030